=== PATIENT | female | born 1940 | race Caucasian/White ===

== ENCOUNTER 2024-07-29 16:18 | Emergency (ER) | payer MEDICARE, SELFPAY ==
--- NOTE | ~2024-07-29 | CT_ITS ---
CLINICAL HISTORY: Acetabular fracture CT pelvis without contrast Comparison: None Findings: Acute comminuted fractures with overriding in the buckling right inferior pubic ramus. Acute comminuted fractures at lateral margin of the superior pubic ramus extend to involve the anterior margin including lower portion of anterior column of the right acetabulum. 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 Degenerative changes also include left hip and imaged SI joints. Degenerative changes also present at imaged pubic symphysis without diastasis. Portions of the pelvis are obscured by superficial metal. Fluid and blood products noted anterior to the right side of the superior pubic rami fractures. Intraperitoneal fluid is nonspecific. Imaged appendix measures at the upper limits of normal. Moderate to severe stool burden is partially imaged in the [id number]. Partially imaged abdominal aorta measures up to 2.5 cm diameter with tortuosity. Vascular calcifications noted. Uterus deviates to the left. Index cyst of right ovary measures 2.2 cm. Left adnexa is unremarkable for CT. IMPRESSION: Acute right-sided pelvic fractures including comminuted pubic rami fractures This document has been electronically signed by: Nicolas Santamaria MD on 07/29/2024 19:16:37
--- NOTE | ~2024-07-29 | XR_ITS ---
CLINICAL HISTORY: fall Radiographs of the pelvis and right hip, 3 views Comparison: None Findings: Fracture of the right superior pubic ramus with 1.0 cm of displacement. Fracture of the right inferior pubic ramus. The osseous structures are otherwise intact. No dislocation. Mild degenerative change. Bone mineralization is decreased. Soft tissue swelling. Impression: Fractures of the right superior and inferior pubic rami. This document has been electronically signed by: Yenni Orozco MD on 07/29/2024 18:53:21
--- NOTE | ~2024-07-29 | XR_ITS ---
CLINICAL HISTORY: preop Chest Radiograph Comparison: None Findings: Prominent sized heart. Normal mediastinal contours. No pneumothorax. No opacity. No pleural effusion. Normal upper abdomen. No acute fracture. Impression: No acute findings. This document has been electronically signed by: Yenni Orozco MD on 07/29/2024 18:56:36
[2024-07-29 16:42] VITALS: BP 199/64; PULSE 79; RESP 16; TEMP 36.2; O2SAT 95; BMI 26.0
--- NOTE | 2024-07-29 17:18 | PC.NURSE ---
Pt comes to ED today with c/o pain to R hip and buttock s/p fall. Pt states she slipped today while out and was unable to get up and/or walk afterwards. States she crawled back to her car and two bystanders helped her up and into her car. A&Ox3, VSS Pt resting quietly at this time. Awaiting orders
--- NOTE | 2024-07-29 17:34 | ECG_ITS ---
Test Reason : FALL Blood Pressure : */* mmHG Vent. Rate : 72 BPM Atrial Rate : 72 BPM P-R Int : 174 ms QRS Dur : 100 ms QT Int : 418 ms P-R-T Axes : 96 -16 36 degrees QTcB Int : 457 ms Normal sinus rhythm Incomplete right bundle branch block Borderline ECG When compared with ECG of 17-Sep-2003 09:44, No significant change was found Referred By: Prakash Greene Electronically Signed By: Tal Spain
--- NOTE | 2024-07-29 17:34 | ED.FALL ---
HPI - Fall General Chief Complaint: Fall Stated Complaint: R hip pain after fall Time Seen by Provider: 07/29/24 17:23 Source: patient Mode of arrival: EMS Limitations: no limitations History of Present Illness ED Provider: HPI Narrative: Patient's history of hypertension and asthma was in stable health was coming out of the car slipped on the black ice and landed on her right hip no head injury no other injury complaining of pain in the right hip was unable to stand up because of pain no prior surgeries on the right hip Related Data Home Medications ?Medication ?Instructions ?Recorded ?Confirmed fluticasone 250 mcg-salmeterol 50 1 ea inhalation BID 07/29/24 07/29/24 mcg/dose blistr powdr for inhalation (Advair Diskus) fluticasone fur. 100 mcg-umeclid 1 ea inhalation DAILY 07/29/24 07/29/24 62.5 mcg-vilant 25 mcg inhalat.powder (Trelegy Ellipta) lisinopril 5 mg tablet 5 mg PO DAILY 07/29/24 07/29/24 Allergies Allergy/AdvReac Type Severity Reaction Status Date / Time No Known Allergies Allergy Verified 07/29/24 16:44 Review of Systems Review of Systems: Yes all other systems are reviewed and are negative PMFSH Past Medical History Medical History Asthma Hypertension Social History Social History Smoked in Last 30 Days: No Use of substances other than those prescribed or required for medical reasons: No Advance Directives: No Advance Directives Information Provided: Yes Physical Exam Vital Signs: Vital Signs: Last Vital Signs Temp 97.9 F 07/29/24 20:10 Pulse 72 07/29/24 20:10 Resp 16 07/29/24 20:10 BP 158/70 H 07/29/24 20:10 Pulse Ox 98 07/29/24 20:10 O2 Del Method Room Air 07/29/24 20:10 BMI result Body Mass Index 26.0 Appearance: Alert. Oriented X3. No acute distress. Eyes: No pallor or icterus ENT: Pharynx normal. Oral Mucosa moist Neck: Normal inspection. Neck supple. CVS: Normal heart rate and rhythm. Pulses normal. Respiratory: No respiratory distress. Equal air entry bilateral, no wheezing/rales/rhonchi Abdomen: Soft and nontender. Bowel sounds are present, no mass palpable, no CVA tenderness Skin: Skin warm and dry. Normal skin color. Normal skin turgor. Extremities: No lower extremity edema. No calf tenderness tenderness right groin area no deformity neurovascular intact Neuro: Oriented X 3. No motor deficit. No sensory deficit.No cerebellar signs , cranial nerves II-XII intact Medications Administered Discontinued Medications Generic Name Dose Route Start Last Admin Trade Name Freq PRN Reason Stop Dose Admin Morphine Sulfate 2 mg 07/29/24 17:33 07/29/24 17:57 Morphine Sulfate 2 Mg/Ml Cartridge IVPUSH 07/29/24 17:34 2 mg ONCE ONE Administration Protocol Ondansetron HCl 4 mg 07/29/24 17:33 07/29/24 17:57 Ondansetron Hcl 4 Mg/2 Ml Vial IVPUSH 07/29/24 17:34 4 mg ONCE ONE Administration Medical Decision Making Medical Decision Making [facility] Narrative: Patient with right pubic rami fracture status post fall unable to ambulate because of pain case discussed with ortho no surgical intervention needed medical treatment will get physical therapy and placement at rehab Differential Diagnosis Differential Diagnoses: The differential diagnosis associated with the presentation includes Admission/Observation Consideration of admission/observation: Escalation of care including admission/observation considered Lab Data [facility] Lab Attestation statement: I reviewed the patient's lab results. 07/29/24 17:56 07/29/24 17:56 Labs: Lab Results 07/29/24 Range/Units 17:56 WBC 11.2 H (4.8-10.8) X10*3/uL RBC 3.99 L (4.20-5.50) X10*6/uL Hgb 12.5 (12.0-16.0) g/dl Hct 37.1 (37.0-47.0) % MCV 93.0 (80.0-98.0) fL MCH 31.3 (27.0-33.0) pg MCHC 33.7 (31.0-35.0) g/dl RDW 12.2 (11.0-16.0) % Plt Count 224 (160-400) X10*3/uL MPV 10.5 (9.4-12.3) fL Immature Gran % (Auto) 0.5 H (0.0-0.4) % Neut % (Auto) 89.0 H (45-73) % Lymph % (Auto) 5.4 L (20-40) % [place] % (Auto) 4.5 (2-11) % Eos % (Auto) 0.4 (0-4) % Baso % (Auto) 0.2 (0-2) % Lymph # (Auto) 0.6 L (1.2-4.9) X10*3/uL [place] # (Auto) 0.5 (0.1-1.2) X10*3/uL Eos # (Auto) 0.1 (0.0-0.4) X10*3/uL Baso # (Auto) 0.0 (0.0-0.2) X10*3/uL Abs Immat Gran (auto) 0.06 H (0.00-0.03) X10*3/uL Absolute Neuts (auto) 10.0 H (2.0-8.3) x10*3/uL Absolute Nucleated RBC 0.000 (0.0-0.012) X10*3/uL Nucleated RBC % (auto) 0.0 (0.0-0.2) /100WBC PT 11.1 (10.9-12.4) SEC INR 1.0 (0.9-1.1) Sodium 141 (135-145) mmol/L Potassium 4.1 (3.3-5.1) mmol/L Chloride 107 (96-108) mmol/L Carbon Dioxide 24 (22-29) mmol/L Anion Gap 14 (12-20) BUN 20 H (9-16) mg/dL Creatinine 0.91 (0.5-1.4) mg/dL Estim Creat Clear Calc 40.5 Estimated GFR 59 Random Glucose 96 (60-115) mg/dL Calcium 9.2 (8.4-10.2) mg/dL Total Bilirubin 0.4 (0.0-1.0) mg/dL AST 25 (5-31) U/L ALT 18 (0-31) U/L Alkaline Phosphatase 82 (39-117) U/L Total Protein 7.3 (6.5-8.0) g/dL Albumin 4.3 (3.5-5.0) g/dL Independent Interpretation I performed an independent interpretation of an: CT Scan Radiology Impression Discussion of test interpretation with radiology: I have reviewed the radiologist's reading. Radiologist Impression: [address] [address] [address] Scan Report Signed Patient: Roxanna Hunter MR#: [id number] : 1940 Acct:[id number] Age/Sex: 84 / F ADM Date: 07/29/24 Loc: HO.ED Attending Dr: Ordering Physician: Prakash Greene MD Date of Service: 07/29/24 Procedure(s): CT pelvis wo IV con Accession Number(s): [id number] cc: Kevin Maldonado III, MD; Prakash Greene MD~ Report Number: [id number]: Total DLP = 352.00 mGy-cm CLINICAL HISTORY: Acetabular fracture CT pelvis without contrast Comparison: None Findings: Acute comminuted fractures with overriding in the buckling right inferior pubic ramus. Acute comminuted fractures at lateral margin of the superior pubic ramus extend to involve the anterior margin including lower portion of anterior column of the right acetabulum. 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 Degenerative changes also include left hip and imaged SI joints. Degenerative changes also present at imaged pubic symphysis without diastasis. Portions of the pelvis are obscured by superficial metal. Fluid and blood products noted anterior to the right side of the superior pubic rami fractures. Intraperitoneal fluid is nonspecific. Imaged appendix measures at the upper limits of normal. Moderate to severe stool burden is partially imaged in the [id number]. Partially imaged abdominal aorta measures up to 2.5 cm diameter with tortuosity. Vascular calcifications noted. Uterus deviates to the left. Index cyst of right ovary measures 2.2 cm. Left adnexa is unremarkable for CT. IMPRESSION: Acute right-sided pelvic fractures including comminuted pubic rami fractures This document has been electronically signed by: Nicolas Santamaria MD on 07/29/2024 19:16:37 Discharge Plan Discharge Clinical Impression: Closed fracture of right superior pubic ramus Patient Disposition: Still a Patient Prescriptions: No Action fluticasone propion-salmeterol [Advair Diskus] 250-50 mcg/dose blister with device 1 ea INHALATION BID lisinopril 5 mg tablet 5 mg PO DAILY Trelegy Ellipta 100-62.5-25 mcg blister with device 1 ea inhalation DAILY Print Language: Danish
[2024-07-29] MEDS: ondansetron HCL 4 MG/2 ML VIAL IVPUSH (17:57)
[2024-07-29] MEDS: Morphine Sulfate 2 MG/ML CARTRIDGE IVPUSH (17:57)
[2024-07-29 18:04] LABS: MANUAL DIFF FLAG NO
[2024-07-29 18:10] LABS: Basophils Percent Auto 0.2 % (0-2); Eosinophils Absolute Auto 0.1 X10*3/uL (0.0-0.4); Eosinophils Percent Auto 0.4 % (0-4); Hematocrit 37.1 % (37.0-47.0); Hemoglobin 12.5 g/dl (12.0-16.0); Imm Gran Abs Auto 0.06 X10*3/uL (0.00-0.03); Imm Gran Pct Auto 0.5 % (0.0-0.4); Lymphocytes Absolute Auto 0.6 X10*3/uL (1.2-4.9); Lymphocytes Percent Auto 5.4 % (20-40); Mean Corpuscular HGB Conc 33.7 g/dl (31.0-35.0); Mean Corpuscular Hemoglobin 31.3 pg (27.0-33.0); Mean Platelet Volume 10.5 fL (9.4-12.3); Monocytes Absolute Auto 0.5 X10*3/uL (0.1-1.2); Monocytes Percent Auto 4.5 % (2-11); Platelet Count 224 X10*3/uL (160-400); Red Blood Count 3.99 X10*6/uL (4.20-5.50); Red Cell Distribution Width 12.2 % (11.0-16.0); White Blood Count 11.2 X10*3/uL (4.8-10.8)
[2024-07-29 18:22] LABS: Prothrombin Time 11.1 SEC (10.9-12.4)
[2024-07-29 18:31] LABS: Alanine Aminotransferase 18 U/L (0-31); Albumin Level 4.3 g/dL (3.5-5.0); Alkaline Phosphatase 82 U/L (39-117); Anion Gap 14 (12-20); Aspartate Amino Transferase 25 U/L (5-31); Bilirubin Total 0.4 mg/dL (0.0-1.0); Blood Urea Nitrogen 20 mg/dL (9-16); Calcium 9.2 mg/dL (8.4-10.2); Carbon Dioxide 24 mmol/L (22-29); Chloride 107 mmol/L (96-108); Creatinine Clr Calc Pharmacy 40.5; Estimated Glomerular Filt Rate 59; Glucose Random 96 mg/dL (60-115); Potassium 4.1 mmol/L (3.3-5.1); Sodium 141 mmol/L (135-145); Total Protein 7.3 g/dL (6.5-8.0)
[2024-07-29 20:10] VITALS: BP 158/70; PULSE 72; RESP 16; TEMP 36.6; O2SAT 98
[2024-07-30] VITALS (7 sets, daily range): BP systolic 130–149; BP diastolic 56–64; PULSE 64–79; RESP 16–20; TEMP 36.6–36.8; O2SAT 97–98
[2024-07-30] MEDS: Morphine Sulfate 2 MG/ML CARTRIDGE IVPUSH ×2 (01:51→10:02)
--- NOTE | 2024-07-30 02:02 | PC.NURSE ---
Patient medicated with Morphine 2 mg IV for 7/10 pain in right hip.
[2024-07-30] MEDS: lisinopriL 5 MG TABLET PO (08:33)
--- NOTE | 2024-07-30 09:41 | MHC.EDTECH ---
patient requested to use the bed stearns. Patient also requested a new purewick. put patient on bed stearns for a BM. No Results. I clean patient up and apply new purewick nurse aware
--- NOTE | 2024-07-30 09:45 | PHA.MEDREC ---
Addendum entered by Judy Sánchez RPh 07/30/24 10:04: med rec reviewed by [facility] Original Note: Pharmacy Consult ? Medication Reconciliation Pharmacy has reviewed the medication reconciliation done by nursing. Spoke to patient to confirm med list. Patient states she is no longer on Advair diskus. Took off med rec.
[2024-07-30 10:33] LABS: COVID-19 Test Negative (Negative); IDNOW Serial# 55D5AD1C
--- NOTE | 2024-07-30 11:05 | MHC.CM.ED ---
Addendum entered by Valery Wisdom 07/30/24 13:14: Copy of HCP obtained from Annie. Sent to [facility]. Patient's daughter, Aggie, updated via telephone at [phone] per voicemail request. Original Note: Received case management consult overnight. Patient came to the ER due to a fall. Found to have a pelvic fx. Physical therapy eval completed. Short term rehab is recommended. Met with patient in regards to discharge planning. Patient lives with her son, ambulates independently and had no services prior to coming to the hospital. PCP verified. Patient requesting referral to [facility]. [facility] is willing to offer a bed and is requesting a copy of patient's HCP. Patient states her daughter, Annie, has a copy of her HCP. Spoke with Annie via telephone at [phone]. Annie is currently in [place]. She will ask her siblings to provide a copy of HCP to hospital. [facility] aware. Continue to monitor for d/c needs.
--- NOTE | 2024-07-30 12:42 | PC.NURSE ---
verbal report given to Uzair LYN for transfer to [facility].
--- NOTE | 2024-07-30 13:44 | MHC.CM.ED ---
Insurance auth has been obtained. [facility] is unable to accept patient until tomorrow 07/31 at 9am. Leandro DODGE booked. [facility] with chart. Patient, daughter Adilene Marcial RN and Billie MATA aware. Continue to monitor for d/c needs.
[2024-07-31] MEDS: Morphine Sulfate 2 MG/ML CARTRIDGE IVPUSH (02:35)
[2024-07-31 06:20] VITALS: BP 130/62; PULSE 65; RESP 18; TEMP 36.6; O2SAT 96
[2024-07-31] MEDS: lisinopriL 5 MG TABLET PO (08:33)
--- NOTE | 2024-07-31 08:39 | MHC.EDTECH ---
Hourly rounds completed, Patient ate her breakfast and she is using the bedpan now for bowel movement
--- NOTE | 2024-07-31 08:54 | PC.NURSE ---
One-time dose of Morphine IR 15mg PO ordered for pt. to be given at the time of d/c for comfortable transport.
[2024-07-31] MEDS: Morphine Sulfate Immed Release 15 MG TABLET PO (09:04)
[2024-07-31 09:36] VITALS: BP 178/74; PULSE 81; RESP 18; TEMP 36.5; O2SAT 96
== END 2024-07-31 09:37 ==
PROVIDERS: Emergency Provider Internal Medicine; PCP Internal Medicine
DX: S32.501A Unspecified fracture of right pubis, initial encounter for closed fracture (principal); R10.2 Pelvic and perineal pain; R26.81 Unsteadiness on feet; M25.551 Pain in right hip; I45.10 Unspecified right bundle-branch block; W00.0XXA Fall on same level due to ice and snow, initial encounter; Y93.9 Activity, unspecified; Y92.89 Other specified places as the place of occurrence of the external cause; Y99.8 Other external cause status; Z79.899 Other long term (current) drug therapy
CPT/HCPCS: 36415; 71045; 72192; 73502; 80053; 85025; 85610; 87635; 93005; 96374; 96375; 96376; 97162; 99285; J2270; J2405

== ENCOUNTER → 2024-07-29 17:33 | Outpatient (BNV) | payer MEDICARE, SELFPAY | PROVIDERS: Emergency Provider Internal Medicine; PCP Internal Medicine; Visit Provider Radiology Diagnostic Radiology | DX: S32.511A Fracture of superior rim of right pubis, initial encounter for closed fracture (principal); Z01.810 Encounter for preprocedural cardiovascular examination | CPT/HCPCS: 71045; 72192; 73502 ==

== ENCOUNTER → 2024-07-29 17:34 | Outpatient (BNV) | payer MEDICARE, SELFPAY | PROVIDERS: Emergency Provider Internal Medicine; PCP Internal Medicine; Visit Provider Internal Medicine Cardiovascular Disease | DX: I45.10 Unspecified right bundle-branch block (principal) | CPT/HCPCS: 93010 ==

== ENCOUNTER 2024-08-29 09:30 | Outpatient (REF) | payer MEDICARE, SELFPAY ==
--- NOTE | ~2024-08-29 | XR_ITS ---
EXAMINATION: XR HIP 2 OR MORE VIEWS RIGHT HISTORY: M25.559 - Pain in unspecified hip COMPARISON: Comparison is made with the prior examination dated 07/29/2024. FINDINGS: A single AP view of the pelvis and two views of the right hip are submitted. The bones are osteopenic. Again seen are fractures of the superior and inferior pubic rami. There is callus formation noted at the fracture sites consistent with healing. There is mild joint space narrowing. The soft tissues are unremarkable. XR/XR hip RT min 2V IMPRESSION: Healing fractures of the right superior and inferior pubic rami. Electronically signed by: Juan Carlos Cat MD 09/01/2024 01:09 PM EDT
--- OUTSIDE RECORDS SUMMARY | 2024-09-01 10:18 | XMS_ITS | Encounter Summary ---
Author Organization [facility] Address [address] [place] [phone] Care Team Providers Care Screen Tender Name Role Phone Kevin Maldonado MD Primary Care Provider [phone] Reason for Visit * Reason Onset Date Comments triage 08/27/2024 Bhupinder was ana martell on this call Encounter Details Date Type Department Care Team ([facility] st Contact Info) Description 08/27/2024 Telephone Adult Medicine [facility] [address] [place] [phone] Kevin Maldonado MD [address] [place] [phone] triage (Bhupinder was working on this call [...] VNA CALL Which VNA office is calling? [facility] Full name of caller: danielle [...] 1:30 PM EDT Office Visit Adult Medicine [facility] [address] [place] [phone] Kevin Maldonado MD [address] [place] [phone] 02/10/2025 8:00 AM EDT Office Visit Adult Medicine [facility] [address] [place] [phone] Kevin Maldonado MD [address] [place] [address] documented as of this encounter Visit Diagnoses Not on filedocumented in this encounter Care Teams Screen Tender Relationship Specialty Start Date End Date Kevin Maldonado MD [address] [place] [phone] PCP - General Internal Medicine 11/17/20 documented as of this encounter
--- OUTSIDE RECORDS SUMMARY | 2024-09-01 10:18 | XMS_ITS | Encounter Summary ---
Author Organization [facility] Address [address] [place] [phone] Care Team Providers Care Computer Assistant Name Role Phone Kevin Maldonado MD Primary Care Provider [phone] Reason for Visit * Reason Onset Date Comments vna 08/27/2024 Encounter Details Date Type Department Care Team (Late st Contact Info) Description 08/27/2024 Telephone Adult Medicine [facility] [address] [place] [phone] Kevin Maldonado MD [address] [place] [phone] vna Social History Tobacco Use Types Packs/Day [...] Reason for call: Requesting verbal order for longterm , PT and OT , please contact nurse Does caller need an urgent call back? no Was CONTACT Telephone # obtained above?: yes Fax #: documented in this encounter Plan of Treatment Upcoming Encounters Date Type Department Care Team (Late st Contact Info) Description 09/22/2024 1:30 PM EDT Office Visit Adult [address] [phone] Kevin Maldonado MD [address] [place] [address] 02/10/2025 8:00 AM EDT Office Visit [address] [phone] Kevin Maldonado MD [address] [place] [address] documented as of this encounter Visit Diagnoses Not on filedocumented in this encounter Care Teams Computer Assistant Relationship Specialty Start Date End Date Kevin Maldonado MD [address] [place] [address] PCP - General Internal Medicine 11/17/20 documented as of this encounter
--- OUTSIDE RECORDS SUMMARY | 2024-09-01 10:18 | XMS_ITS | Encounter Summary ---
Author Organization [facility] Address [address] [place] [phone] Care Team Providers Care Bindery Helper Name Role Phone Kevin Maldonado MD Primary Care Provider [phone] Reason for Visit * Reason Onset Date Comments VNA 08/29/2024 Encounter Details Date Type Department Care Team (Late Contact Info) Description 08/29/2024 Telephone Adult Medicine [address] [phone] Hnanah Beck, RIKI VNA Social History Tobacco Use Types Packs/Day Years [...] Progress Notes * Olvin Jung LPN - 09/01/2024 9:53 AM EDT VO given to Alaina * Kevin Maldonado MD - 08/29/2024 6:30 PM EST Please give the vo documented in this encounter Plan of Treatment Upcoming Encounters Date Type Department Care Team (Late Contact Info) Description 09/22/2024 1:30 PM EDT Office Visit Adult Medicine [address] [phone] Kevin Maldonado MD [address] [place] [address] 02/10/2025 8:00 AM EDT Office Visit Adult Medicine [address] [phone] Kevin Maldonado MD [address] [place] [address] documented as of this encounter Visit Diagnoses Not on filedocumented in this encounter Care Teams Bindery Helper Relationship Specialty Start Date End Date Kevin Maldonado MD [address] [place] [address] PCP - General Internal Medicine 11/17/20 documented as of this encounter
--- OUTSIDE RECORDS SUMMARY | 2024-09-01 10:18 | XMS_ITS | Encounter Summary ---
Author Organization [facility] Address [address] [place] [phone] Care Team Providers Care Surveyor Name Role Phone Kevin Maldonado MD Primary Care Provider [phone] Reason for Referral * Consultation (Routine) - Authorized Specialty Diagnoses / Procedures Referred By Gorge pena Referred To Contact Orthopaedics Diagnoses Closed fracture of superior ramus of right pubis, initial encounter ([facility]) Kevin Maldonado MD [address] [place] [address] Phone: tel: fax: Juan Maza MD [address] [place] [phone] Phone: tel: Referral ID Status Reason Start Date Expiration Date Visits Requested Visits Authorized [id number] Authorized Specialty Services Required 08/07/2024 08/07/2025 6 6 Reason for Visit * Reason Onset Date Comments Referral 08/10/2024 [facility] Encounter Details Date Type Department Care Team ([facility] st Contact Info) Description 08/10/2024 Telephone Adult Medicine [address] [phone] Ny Bravo [place] Referral ([facility]) Social History Tobacco Use Types Packs/Day [...] insurance must be obtained and registered in [facility] or their referral can not be processed. Is this a retro request? yes. If yes for what date of service do you need the retro referral? 08/07/24 Who is calling to request this referral? Jose Guadalupe Morgan If the caller is not the patient, what is their name? not applicable Ask the patient WHO referred them to this specialty: Patient saw at [facility] for the problem and was told if [...] this visit: Initial Visit Address of Specialist: [address] [place] [address], [address] Phone # of Specialist: [phone] Fax #: (if applicable): [phone] Does patient have an appointment scheduled?: yes Date of appointment- (including a retro-request): 08/07/24 Is this appointment related to: Not MVA, worker compensation, or surgery related documented in this encounter Plan of Treatment Upcoming Encounters Date Type Department Care Team (Late st Contact Info) Description 09/22/2024 1:30 PM EDT Office Visit Adult Medicine [address] [phone] Kevin Maldonado MD [address] [place] [address] 02/10/2025 8:00 AM EDT Office Visit Adult Medicine [address] [phone] Kevin Maldonado MD [address] [place] [address] Scheduled Referrals Name Type Priority Associated Diagnoses Order Schedule Ambulatory referral to Orthopedic Outpatient Referral Routine Closed fracture of superior ramus of right pubis, initial encounter ([facility]) 1 Occurrences starting 08/11/2024 until 08/11/2025 documented as of this encounter Visit Diagnoses Diagnosis Closed fracture of superior ramus of right pubis, initial encounter ([facility])- Primary documented in this encounter Care Teams Surveyor Relationship Specialty Start Date End Date Kevin Maldonado MD [address] [place] [address] PCP - General Internal Medicine 11/17/20 documented as of this encounter
--- OUTSIDE RECORDS SUMMARY | 2024-09-01 10:18 | XMS_ITS | Encounter Summary ---
Author Organization [facility] Address [address] [place] [address] Care Team Providers Care Sales Management Intern Name Role Phone Kevin Maldonado MD Primary Care Provider [phone] Reason for Visit * Reason Onset Date Comments [facility] 08/29/2024 Encounter Details Date Type Department Care Team (Late st Contact Info) Description 08/29/2024 Nurse Triage Adult Medicine [facility] [address] [place] [phone] Kevin Maldonado MD [address] [place] [id number] [facility] Social History Tobacco Use Types Packs/Day [...] on file documented as of this encounter Ordered Prescriptions Prescription Sig Dispense Quantity Refills Last Filled Start Date End Date benzonatate (TESSALON) 100 mg capsule Take 1 capsule (100 mg total) by mouth 3 (three) times a day if needed for cough. Do not crush or chew. 42 capsule 08/29/2024 documented in this encounter Progress Notes * Hannah Beck RN - 09/01/2024 8:35 AM EDT Noted. * Kevin Maldonado MD - 08/29/2024 6:05 PM EST Called pt to inform her gisela azar has been sent to her pharmacy. Pt to call on Sunday if not feeling better regarding the cough * Hannah Beck RN - 08/29/2024 2:54 PM EST Called and spoke to Roxanne. She states pt's BP was 184/81 today. Pt was asymptomatic per Roxanne. She states pt has been taking OTC cough medication. She stopped taking this medication yesterday. She is complaining of a productive cough with copious green sputum. She is requesting a medication to help with her cough. She was advised if her PCP could not prescribe her anything for her cough she could go to an [facility] for further evaluation and treatment. Answer Assessment - Initial Assessment Questions 1. BLOOD PRESSURE: What is your blood pressure? Did you take at least two measurements 5 minutesapart? 184/81 2. ONSET: When did you take your blood pressure? Taken by [facility] OT today 3. HOW: How did you take your blood pressure? (e.g., automatic home BP monitor, visiting nurse) Visiting nurse 4. HISTORY: Do you have a history of high blood pressure? HTN 5. MEDICINES: Are you taking any medicines for blood pressure? Have you missed any doses recently? Hctz and Lisinopril 6. OTHER SYMPTOMS: Do you have any symptoms? (e.g., blurred vision, chest pain, difficulty breathing, headache, weakness) No symptoms 7. : Is there any chance you are ? When was your last menstrual period? No. Pt is 84 Protocols used: Blood Pressure - High-A-AH * Violetta [place] - 08/29/2024 2:33 PM EST [facility] CALL Which [facility] office is calling? [facility] Full name of caller: Roxanne The caller is An Occupational Therapist Is the caller at the patients home?: no Reason for call: Roxanne with [facility] is calling to get verbal orders for OT. States PT 1x a week for 3 weeks then 1x a week for 2 weeks. Would also like to report patient blood pressure today was 184/81. She has a productive cough and has been taking otc cough medication and stopped yesterday Does caller need an urgent call back? no Was CONTACT Telephone # obtained above?: yes Fax #: n/a documented in this encounter Plan of Treatment Upcoming Encounters Date Type Department Care Team (Late st Contact Info) Description 09/22/2024 1:30 PM EDT Office Visit Adult Medicine [address] [phone] Kevin Maldonado MD [address] [place] [address] 02/10/2025 8:00 AM EDT Office Visit [address] [phone] Kevin Maldonado MD [address] [place] [address] documented as of this encounter Visit Diagnoses Not on filedocumented in this encounter Care Teams Sales Management Intern Relationship Specialty Start Date End Date Kevin Maldonado MD [address] [place] [address] PCP - General Internal Medicine 11/17/20 documented as of this encounter
--- OUTSIDE RECORDS SUMMARY | 2024-09-01 10:18 | XMS_ITS | Clinical Summary ---
Author Organization [facility] Address [address] [place] [address] Phone Care Team Providers Care Temperature Inspector Name Role Phone Kevin Maldonado MD Primary Care Provider [phone] Allergies Active Allergy Reactions Criticality Noted Date [...] NOT SWALLOW. 60 each 1 5 Active benzonatate (TESSALON) 100 mg capsule Take 1 capsule (100 mg total) by mouth 3 (three) times a day if needed for cough. Do not crush or chew. 42 capsule 5 025 Active Active Problems Problem Noted Date Diagnosed [...] Encounters Date Type Department Care Team Description 08/29/2024 Telephone Adult Medicine [address] [phone] Hannah Beck, RIKI [facility] 08/29/2024 Nurse Triage Adult Medicine [address] [phone] Kevin Maldonado MD [facility] 08/27/2024 Telephone Adult Medicine [address] [phone] Kevin Maldonado MD triage (Bhupinder was working on this call ) 08/27/2024 Telephone Adult Medicine [address] [phone] Kevin Maldonado MD vna 08/26/2024 Telephone Adult Medicine [address], [place] [phone] Margaret Ugarte [place] dry cough 08/21/2024 Telephone Adult Medicine [address] [phone] Olvin Jung LPN vna 08/10/2024 Telephone Adult Medicine [address] [phone] Ny Bravo [place] Referral ([facility]) 08/01/2024 Lab Requisition [facility] - Main Lab [address] [place] [address] Valerie Singletary PA Type 2 diabetes mellitus without complications ([facility]/HCC); Chronic obstructive pulmonary disease, unspecified (CMS/HCC); Elevated [...] 1:30 PM EDT Office Visit Adult Medicine [address] [phone] Kevin Maldonado MD [address] [place] [address] 02/10/2025 8:00 AM EDT Office Visit Adult Medicine [address] [phone] Kevin Maldonado MD [address] [place] [phone] Health Maintenance Due Date Last Done Comments [...] Complete blood count (08/01/2024 5:13 AM EST) [facility] WBC 7.0 4.8 - 10.8 K/mcL LAB HEMETOLOGY METHOD 08/01/2024 9:33 AM [facility] RBC 3.70(L) 3.80 - 4.80 M/mcL LAB HEMETOLOGY METHOD 08/01/2024 9:33 AM [facility] Hemoglobin 11.4(L) 11.5 - 16.0 g/dL LAB HEMETOLOGY METHOD 08/01/2024 9:33 AM [facility] Hematocrit 35.7 35.0 - 47.0 % LAB HEMETOLOGY METHOD 08/01/2024 9:33 AM [facility] MCV 97.0 79.0 - 98.0 FL LAB HEMETOLOGY METHOD 08/01/2024 9:33 AM EST [facility] MCH 31.0 27.0 - 32.0 pcg LAB HEMETOLOGY METHOD 08/01/2024 9:33 AM [facility] MCHC 31.9(L) 32.0 - 37.0 g/dL LAB HEMETOLOGY METHOD 08/01/2024 9:33 AM EST [facility] RDW 12.4 11.0 - 15.0 % LAB HEMETOLOGY METHOD 08/01/2024 9:33 AM [facility] Platelets 200 130 - 400 K/mcL LAB HEMETOLOGY METHOD 08/01/2024 9:33 AM [facility] MPV 10.9 7.0 - 11.0 FL LAB HEMETOLOGY METHOD 08/01/2024 9:33 AM EST [facility] NRBC 0.0 <1.0 % LAB HEMETOLOGY METHOD 08/01/2024 9:33 AM [facility] NRBC Absolute 0.00 <0.10 K/mcL LAB HEMETOLOGY METHOD 08/01/2024 9:33 AM [facility] Blood Venous blood specimen / Unknown Venipuncture / Unknown 08/01/2024 5:13 AM EST 08/01/2024 8:44 AM EST us Valerie CORDON LAB BLOOD ORDERABLES Final Re sult [facility] [address] [place] [address], * Hemoglobin A1c (08/01/2024 5:13 AM EST) Hemoglobin A1C 4.9 <6.5 % LAB CHEMISTRY METHOD 08/01/2024 12:36 PM EST [facility] Mean Bld Glu Estim. 94 mg/dL LAB CHEMISTRY METHOD 08/01/2024 12:36 PM [facility] Blood Venous blood specimen / Unknown Venipuncture / Unknown 08/01/2024 5:13 AM EST 08/01/2024 8:44 AM EST us Valerie CORDON LAB BLOOD ORDERABLES Final Re sult [facility] [address] [place] [address], [place] [phone] * (ABNORMAL) Comprehensive metabolic panel (08/01/2024 5:13 AM EST) Sodium 137 133 - 145 mmol/L LAB CHEMISTRY METHOD 08/01/2024 9:59 AM [facility] Potassium 4.5 3.5 - 5.5 mmol/L LAB CHEMISTRY METHOD 08/01/2024 9:59 AM [facility] Chloride 105 96 - 110 mmol/L LAB CHEMISTRY METHOD 08/01/2024 9:59 AM [facility] CO2 25 21 - 32 mmol/L LAB CHEMISTRY METHOD 08/01/2024 9:59 AM [facility] Anion Gap 7 3 - 11 LAB CHEMISTRY METHOD 08/01/2024 9:59 AM [facility] Glucose 87 70 - 100 mg/dL LAB CHEMISTRY METHOD 08/01/2024 9:59 AM [facility] BUN 36(H) 5 - 25 mg/dL LAB CHEMISTRY METHOD 08/01/2024 9:59 AM [facility] Creatinine 1.46(H) 0.50 - 1.10 mg/dL LAB CHEMISTRY METHOD 08/01/2024 9:59 AM [facility] eGFR 35(L) >=60 mL/min/1. 73m2 LAB CHEMISTRY METHOD 08/01/2024 9:59 AM [facility] Comment:Calculation based on the??Chronic Kidney Disease Epidemiology Collaboration (CKD-EPI) equation refit??without adjustment for race. BUN/Creatinine Ratio 24.7 LAB CHEMISTRY METHOD 08/01/2024 9:59 AM [facility] Calcium 8.9 8.5 - 10.5 mg/dL LAB CHEMISTRY METHOD 08/01/2024 9:59 AM [facility] AST (SGOT) 13 10 - 42 unit/L LAB CHEMISTRY METHOD 08/01/2024 9:59 AM [facility] ALT (SGPT) 17 10 - 60 unit/L LAB CHEMISTRY METHOD 08/01/2024 9:59 AM [facility] Alkaline Phosphatase 61 42 - 121 unit/L LAB CHEMISTRY METHOD 08/01/2024 9:59 AM [facility] Total Protein 5.8(L) 6.0 - 8.0 g/dL LAB CHEMISTRY METHOD 08/01/2024 9:59 AM [facility] Albumin 3.3 3.2 - 5.0 g/dL LAB CHEMISTRY METHOD 08/01/2024 9:59 AM [facility] Total Bilirubin 0.7 0.0 - 1.4 mg/dL LAB CHEMISTRY METHOD 08/01/2024 9:59 AM [facility] Blood Venous blood specimen / Unknown Venipuncture / Unknown 08/01/2024 5:13 AM EST 08/01/2024 8:44 AM EST us Valerie CORDON LAB BLOOD ORDERABLES Final Re sult [facility] [address] [place] [address], * (ABNORMAL) Lipid panel (02/07/2024) LDL/HDL Ratio 4 0 - 4 Triglycerides 86 0 - 150 mg/dL Cholesterol 206(A) 0 - 200 mg/dL HDL 52 >=40 mg/dL LDL Cholesterol 137(A) 0 - 100 mg/dL Blood Venous blood specimen / Unknown us Historical Provider LAB BLOOD ORDERABLES [place] [place] Result * DXA BONE DENSITY STUDY 1+ [...] to have osteoporosis by WHO criteria. [facility] Department of Internal Medicine recommends using National [...] alternative screening schedule based on kylee Bowers., [facility] July 13, 2011 for patients with osteopenia [...] to have osteoporosis by WHO criteria. [facility] Department of Internal Medicine recommendsusing National Osteoporosis [...] FRAX. Optional alternative screening schedule based on yaya Bowers al., NEJMJanuary 2011 for patients with osteopenia (based on hip BMD T-score) is as follows: * advanced osteopenia (T scores -2.00 to -2.49), BMD testing every year * moderate osteopenia (T scores -1.50 to -1.99), BMD testing every 5years mild osteopenia or normal BMD (T scores -1.50 and higher), BMD testingevery 15 years Ariana CORDON [employer] DXA PROCEDURES Final Result from Last 3 Months or Most Recently Relevant to Health Maintenance Insurance [employer] Care Teams Temperature Inspector Relationship Specialty Start Date End Date Kevin Maldonado MD [address] [place] [id number] PCP - General Internal Medicine 11/17/20
--- OUTSIDE RECORDS SUMMARY | 2024-09-01 10:18 | XMS_ITS | Encounter Summary ---
Author Organization [facility] Address [address] [place] [address] Care Team Providers Care Vector Control Assistant Name Role Phone Kevin Maldonado MD Primary Care Provider [phone] Reason for Visit * Reason Onset Date Comments dry cough 08/26/2024 Encounter Details Date Type Department Care Team (Late st Contact Info) Description 08/26/2024 Telephone Adult Medicine [address] [phone] Margaret Ugarte [place] dry cough Social History [...] number to call her back at is [phone] * Cody Lewis RN - 08/26/2024 3:16 [...] traveled recently to another state outside of [place], [place], [place], [place], [place], [place], [place]? no o If yes, did you quarantine [...] yes, gather 3rd libertarian insurance information Third Constitution Party Information: not applicable PCP: Kevin Maldonado MD Payor: [employer] / Plan: [facility] / Product Type: *No Product type* / documented in this encounter Plan of Treatment Upcoming Encounters Date Type Department Care Team (Late st Contact Info) Description 09/22/2024 1:30 PM EDT Office Visit Adult Medicine [address] [phone] Kevin Maldonado MD [address] [place] [address] 02/10/2025 8:00 AM EDT Office Visit [address] [phone] Kevin Maldonado MD [address] [place] [address] documented as of this encounter Visit Diagnoses Not on filedocumented in this encounter Care Teams Vector Control Assistant Relationship Specialty Start Date End Date Kevin Maldonado MD [address] [place] [address] PCP - General Internal Medicine 11/17/20 documented as of this encounter
--- OUTSIDE RECORDS SUMMARY | 2024-09-01 10:18 | XMS_ITS | Encounter Summary ---
Author Organization [facility] Address [address] [place] [address] Care Team Providers Care Ditcher Operator Name Role Phone Kevin Maldonado MD Primary Care Provider [phone] Encounter Details Date Type Department Care Team (Late st Contact Info) Description 08/01/2024 Lab Requisition [facility] - Main Lab [address] [facility] [place] [address] Valerie Singletary PA [address] [phone] Type 2 diabetes mellitus without [...] 1:30 PM EDT Office Visit Adult Medicine [address] [phone] Kevin Maldonado MD [address] [place] [address] 02/10/2025 8:00 AM EDT Office Visit Adult Medicine [address] [phone] Kevin Maldonado MD [address] [place] [address] documented as of this encounter Procedures Procedure [...] LAB CHEMISTRY METHOD 08/01/2024 12:36 PM EST [facility] Mean Bld Glu Estim. 94 mg/dL LAB CHEMISTRY METHOD 08/01/2024 12:36 PM EST [facility] Blood Venous blood specimen / Unknown Venipuncture / Unknown 08/01/2024 5:13 AM EST 08/01/2024 8:44 AM EST us Valerie CORDON LAB BLOOD ORDERABLES Final Re sult [facility] [address] [place] [address], * (ABNORMAL) Comprehensive metabolic panel (08/01/2024 5:13 AM EST) Sodium 137 133 - 145 mmol/L LAB CHEMISTRY METHOD 08/01/2024 9:59 AM [facility] Potassium 4.5 3.5 - 5.5 mmol/L LAB CHEMISTRY METHOD 08/01/2024 9:59 AM [facility] Chloride 105 96 - 110 mmol/L LAB CHEMISTRY METHOD 08/01/2024 9:59 AM [facility] CO2 25 21 - 32 mmol/L LAB CHEMISTRY METHOD 08/01/2024 9:59 AM [facility] Anion Gap 7 3 - 11 LAB CHEMISTRY METHOD 08/01/2024 9:59 AM [facility] Glucose 87 70 - 100 mg/dL LAB CHEMISTRY METHOD 08/01/2024 9:59 AM [facility] BUN 36(H) 5 - 25 mg/dL LAB CHEMISTRY METHOD 08/01/2024 9:59 AM [facility] Creatinine 1.46(H) 0.50 - 1.10 mg/dL LAB CHEMISTRY METHOD 08/01/2024 9:59 AM [facility] eGFR 35(L) >=60 mL/min/1. 73m2 LAB CHEMISTRY METHOD 08/01/2024 9:59 AM [facility] Comment:Calculation based on the??Chronic Kidney Disease Epidemiology Collaboration (CKD-EPI) equation refit??without adjustment for race. BUN/Creatinine Ratio 24.7 LAB CHEMISTRY METHOD 08/01/2024 9:59 AM [facility] Calcium 8.9 8.5 - 10.5 mg/dL LAB CHEMISTRY METHOD 08/01/2024 9:59 AM [facility] AST (SGOT) 13 10 - 42 unit/L LAB CHEMISTRY METHOD 08/01/2024 9:59 AM [facility] ALT (SGPT) 17 10 - 60 unit/L LAB CHEMISTRY METHOD 08/01/2024 9:59 AM [facility] Alkaline Phosphatase 61 42 - 121 unit/L LAB CHEMISTRY METHOD 08/01/2024 9:59 AM [facility] Total Protein 5.8(L) 6.0 - 8.0 g/dL LAB CHEMISTRY METHOD 08/01/2024 9:59 AM [facility] Albumin 3.3 3.2 - 5.0 g/dL LAB CHEMISTRY METHOD 08/01/2024 9:59 AM [facility] Total Bilirubin 0.7 0.0 - 1.4 mg/dL LAB CHEMISTRY METHOD 08/01/2024 9:59 AM [facility] Blood Venous blood specimen / Unknown Venipuncture / Unknown 08/01/2024 5:13 AM EST 08/01/2024 8:44 AM EST us Valerie CORDON LAB BLOOD ORDERABLES Final Re sult [facility] [address] [place] [address], * (ABNORMAL) Complete blood count (08/01/2024 5:13 AM EST) WBC 7.0 4.8 - 10.8 K/mcL LAB HEMETOLOGY METHOD 08/01/2024 9:33 AM [facility] RBC 3.70(L) 3.80 - 4.80 M/mcL LAB HEMETOLOGY METHOD 08/01/2024 9:33 AM [facility] Hemoglobin 11.4(L) 11.5 - 16.0 g/dL LAB HEMETOLOGY METHOD 08/01/2024 9:33 AM [facility] Hematocrit 35.7 35.0 - 47.0 % LAB HEMETOLOGY METHOD 08/01/2024 9:33 AM [facility] MCV 97.0 79.0 - 98.0 FL LAB HEMETOLOGY METHOD 08/01/2024 9:33 AM [facility] MCH 31.0 27.0 - 32.0 pcg LAB HEMETOLOGY METHOD 08/01/2024 9:33 AM EST [facility] MCHC 31.9(L) 32.0 - 37.0 g/dL LAB HEMETOLOGY METHOD 08/01/2024 9:33 AM [facility] RDW 12.4 11.0 - 15.0 % LAB HEMETOLOGY METHOD 08/01/2024 9:33 AM [facility] Platelets 200 130 - 400 K/mcL LAB HEMETOLOGY METHOD 08/01/2024 9:33 AM [facility] MPV 10.9 7.0 - 11.0 FL LAB HEMETOLOGY METHOD 08/01/2024 9:33 AM [facility] NRBC 0.0 <1.0 % LAB HEMETOLOGY METHOD 08/01/2024 9:33 AM [facility] NRBC Absolute 0.00 <0.10 K/mcL LAB HEMETOLOGY METHOD 08/01/2024 9:33 AM [facility] Blood Venous blood specimen / Unknown Venipuncture / Unknown 08/01/2024 5:13 AM EST 08/01/2024 8:44 AM EST us Valerie CORDON LAB BLOOD ORDERABLES Final Re sult [facility] [address] [place] [address], documented in this encounter Visit Diagnoses Diagnosis Type 2 diabetes mellitus without complications (CMS/HCC) Chronic obstructive pulmonary disease, unspecified (CMS/HCC) Elevated white blood cell count, unspecified documented in this encounter Care Teams Ditcher Operator Relationship Specialty Start Date End Date Kevin Maldonado MD [address] [place] [address] PCP - General Internal Medicine 11/17/20 documented as of this encounter
--- OUTSIDE RECORDS SUMMARY | 2024-09-01 10:18 | XMS_ITS | Encounter Summary ---
Author Organization [facility] Address [address] [place] [phone] Care Team Providers Care Travel Manager Name Role Phone Kevin Maldonado MD Primary Care Provider [phone] Reason for Visit * Reason Onset Date Comments vna 08/21/2024 Encounter Details Date Type Department Care Team (Late st Contact Info) Description 08/21/2024 Telephone Adult Medicine [address] [place] [address] [phone] Olvin Jung LPN vna Social History Tobacco [...] you Please send response to nurse triage [facility] rehab visit booked for 09/22/24 Last office visit 04/22/25 documented in this encounter Plan of Treatment Upcoming Encounters Date Type Department Care Team (Late st Contact Info) Description 09/22/2024 1:30 PM EDT Office Visit [address] [phone] Kevin Maldonado MD [address] [place] [address] 02/10/2025 8:00 AM EDT Office Visit [address] [phone] Kevin Maldonado MD [address] [place] [address] documented as of this encounter Visit Diagnoses Not on filedocumented in this encounter Care Teams Travel Manager Relationship Specialty Start Date End Date Kevin Maldonado MD [address] [place] [address] PCP - General Internal Medicine 11/17/20 documented as of this encounter
== END 2024-08-29 09:31 | disposition home or self-care (01) ==
LOC: HO.HOSX 09:30
PROVIDERS: Visit Provider Physician Assistant
DX: M25.551 Pain in right hip (principal); S32.511A Fracture of superior rim of right pubis, initial encounter for closed fracture; S32.591A Other specified fracture of right pubis, initial encounter for closed fracture
CPT/HCPCS: 73502; 99202

== ENCOUNTER 2024-08-29 10:20 | Outpatient (AMB) | payer MEDICARE, SELFPAY ==
--- NOTE | 2024-08-29 10:50 | MHC.OFFVIS ---
Vital Signs 08/29/24 10:55 Height 5 ft 2 in Weight 140 lb BMI 25.6 Intake Visit Reasons: FC- RT hip pubic rami fx Intake Note: Roxanna is a 84 year old female who presents today with a walker and her son for a evaluation if her right hip fx, DOI 07/29/24. Patient states that she was coming out of the car when she slipped on black ice. She landed on her right hip. Patient is doing well since she took some Tylenol which is giving her relief. She states when tylenol wears off her pain is a 3/10 on the pain scale. Allergies No Known Allergies Allergy (Verified 08/29/24 10:53) HPI HPI FC- RT hip pubic rami fx: Details: Ms. Hunter his 84-year-old female who presents to the office today accompanied by her son for evaluation of a right superior and inferior pubic rami fracture that occurred on 07/29/2024. She reports that she was getting out of a vehicle when she slipped on ice and fell landing on the right hip and buttock. She is taking ibuprofen which gives her relief. She is also walking with the use of a walker. She is weight-bearing as tolerated despite recommendations from the emergency department for toe-touch weight-bearing on the right lower extremity. [facility] Medical History Asthma Hypertension Social History (Updated 08/29/24 @ 10:54 by Adali Ferreira) Alcohol intake: never Patient Tobacco Use Status: Never used Tobacco Current occupational status: retired Review of Systems Const All systems reviewed & are unremarkable except as noted in HPI and below Physical Exam Vital Signs: BMI result Body Mass Index 25.6 Const General: cooperative, healthy appearing and no acute distress Resp Effort & Inspection: normal respiratory effort and able to speak in complete sentences Cardio Rate: regular rate Peripheral pulses: Peripheral pulses 2+ throughout Skin Lesions: no lesions Rashes: no rashes Extrem Other: Weight-bearing as tolerated on the right lower extremity walking into the office today. NVI. Assessment & Plan Assessment & Plan (1) Fracture of superior pubic ramus: Code(s): S32.519A - Fracture of superior rim of unspecified pubis, initial encounter for closed fracture Category: Medical (2) Inferior pubic ramus fracture: Code(s): S32.599A - Other specified fracture of unspecified pubis, initial encounter for closed fracture Category: Medical Plan Ms. Hunter his 84-year-old female who presents to the office today accompanied by her son for evaluation of a right superior and inferior pubic rami fracture that occurred on 07/29/2024. She reports that she was getting out of a vehicle when she slipped on ice and fell landing on the right hip and buttock. She is taking ibuprofen which gives her relief. She is also walking with the use of a walker. She is weight-bearing as tolerated despite recommendations from the emergency department for toe-touch weight-bearing on the right lower extremity. I discussed the case and imaging with Dr. Maza who was available but did not see the patient with me in the office today in a collaborative treatment plan was created. The patient was educated on the importance of toe-touch weight-bearing on the right lower extremity and the possibility of complications that could arise which include but are not limited to increase in pain, further displacement of the fracture and hip into the pelvis and progression of osteoarthritis in the right hip. Patient should remain toe-touch weight-bearing with the use of a walker. I would like to see the patient in 4 weeks with repeat x-rays, sooner if needed. X-rays of the right hip which were obtained while in the office today and were reviewed by me, Felicia Hendrix PA-C, revealed redemonstration of right superior and inferior pubic rami fractures. Orders: Orders XR hip RT min 2V Today M25.559 - Pain in unspecified hip Coding Level of Care Code New Pt Level 3 (77876) Diagnoses Fracture of superior pubic ramus S32.519A Inferior pubic ramus fracture S32.599A
[2024-08-29 10:55] VITALS: BMI 25.6
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
--- OUTSIDE RECORDS SUMMARY | 2024-08-29 11:35 | XMS_ITS | Encounter Summary ---
Author Organization [facility] Address [id number] [place] [phone] Care Team Providers Care Stack Clerk Name Role Phone Kevin Maldonado MD Primary Care Provider [phone] Reason for Referral * Consultation (Routine) - Authorized Specialty Diagnoses / Procedures Referred By Gorge pena Referred To Contact Orthopaedics Diagnoses Closed fracture of superior ramus of right pubis, initial encounter ([facility]) Kevin Maldonado MD [address] [place] [address] Phone: tel: fax: Juan Maza MD [address] [place] [phone] Phone: tel: Referral ID Status Reason Start Date Expiration Date Visits Requested Visits Authorized [id number] Authorized Specialty Services Required 08/07/2024 08/07/2025 6 6 Reason for Visit * Reason Onset Date Comments Referral 08/10/2024 [facility] Encounter Details Date Type Department Care Team ([facility] st Contact Info) Description 08/10/2024 Telephone Adult Medicine [address] [phone] Ny Bravo [place] Referral ([facility]) Social History Tobacco Use Types Packs/Day Years Used Date Smoking Tobacco: Former Cigarettes Q uit: 06/25/1997 Smokeless Tobacco: Never Alcohol Use Standard Drinks/Week Comments No 0 (1 standard drink = 0.6 oz pur e alcohol) Comments Unknown Sex and Gender Information Value Date Recorded Sex Assigned at Not on file Legal Sex Female 10:19 AM EST Gender Identity Not on file Sexual Orientation Not on file documented as of this encounter Progress Notes * Hannah Beck RN - 08/13/2024 9:15 AM EST Noted. * Violetta Nelson - 08/13/2024 9:06 AM EST Patient called back. I told her that the referral requested for Jose Guadalupe Morgan was signed off by DR Maldonado. States thank you and if you need her for anything else please call her * Hannah Beck RN - 08/11/2024 2:08 PM EST I left pt a message to call the office at on her home and mobile numbers. * Kevin Maldonado MD - 08/11/2024 1:51 PM EST Referral signed * Ny Bravo [place] - 08/10/2024 4:08 PM EST Referral Request: What insurance does the patient have today? [employer] Referrals cannot be processed if the insurance is not accurate. If the insurance listed above in red is NO BILLING INFORMATION FOUND FOR THIS ENCOUTNER The patients correct insurance must be obtained and registered in [facility] or their referral can not be processed. Is this a retro request? yes. If yes for what date of service do you need the retro referral? 08/07/24 Who is calling to request this referral? Jose Guadalupe Morgan If the caller is not the patient, what is their name? not applicable Ask the patient WHO referred them to this specialty: Patient saw at [facility] for the problem and was told if symptoms did not resolve or worsen they would refer them to this specialty FIRST and LAST NAME of SPECIALIST PATIENT is seeing: Felicia Allen NP What specialty is this? Ortho DIAGNOSIS Patient is being seen for (Not a body part or a procedure): S32.511A Have you seen this SPECIALIST for this PROBLEM/DX before? If YES, when? No Have you checked REVIEW or the APPT DESK to see if this referral has already been done or has visits left? yes Is this visit: Initial Visit Address of Specialist: [address] [place] [address], [address] Phone # of Specialist: [phone] Fax #: (if applicable): [phone] Does patient have an appointment scheduled?: yes Date of appointment- (including a retro-request): 08/07/24 Is this appointment related to: Not MVA, worker compensation, or surgery related documented in this encounter Plan of Treatment Upcoming Encounters Date Type Department Care Team (Late st Contact Info) Description 09/22/2024 1:30 PM EDT Office Visit Adult Medicine [address] [phone] Kevin Maldonado MD [address] [place] [address] 02/10/2025 8:00 AM EDT Office Visit Adult Medicine [address] [phone] Kevin Maldonado MD [address] [place] [address] Scheduled Referrals Name Type Priority Associated Diagnoses Order Schedule Ambulatory referral to Orthopedic Outpatient Referral Routine Closed fracture of superior ramus of right pubis, initial encounter ([facility]) 1 Occurrences starting 08/11/2024 until 08/11/2025 documented as of this encounter Visit Diagnoses Diagnosis Closed fracture of superior ramus of right pubis, initial encounter ([facility])- Primary documented in this encounter Care Teams Stack Clerk Relationship Specialty Start Date End Date Kevin Maldonado MD [address] [place] [id number] PCP - General Internal Medicine 11/17/20 documented as of this encounter
--- OUTSIDE RECORDS SUMMARY | 2024-08-29 11:35 | XMS_ITS | Encounter Summary ---
Author Organization [facility] Address [address] [place] [phone] Care Team Providers Care Director Manufacturing Engineering Name Role Phone Kevin Maldonado MD Primary Care Provider [phone] Reason for Visit * Reason Onset Date Comments vna 08/27/2024 Encounter Details Date Type Department Care Team (Late st Contact Info) Description 08/27/2024 Telephone Adult Medicine [facility] [address] [place] [phone] Kevin Maldonado MD [address] [place] [phone] vna Social History Tobacco Use Types Packs/Day Years [...] as of this encounter Progress Notes * Olvin Jung LPN - 08/27/2024 10:19 AM EST VO were given to Sanna on 08/21/24 Mamie aware * Matthew Cross - 08/27/2024 10:04 AM EST VNA CALL Which [facility]NA office is calling? [facility] Full name of caller: Payal The caller is A nurse Is the caller at the patients home?: no Reason for call: Requesting verbal order for assisted , PT and OT , please contact nurse Does caller need an urgent call back? no Was CONTACT Telephone # obtained above?: yes Fax #: documented in this encounter Plan of Treatment Upcoming Encounters Date Type Department Care Team (Late st Contact Info) Description 09/22/2024 1:30 PM EDT Office Visit Adult [address] [phone] Kevin Maldonado MD [address] [place] [address] 02/10/2025 8:00 AM EDT Office Visit [address] [phone] Kevin Maldonado MD [address] [place] [address] documented as of this encounter Visit Diagnoses Not on filedocumented in this encounter Care Teams Director Manufacturing Engineering Relationship Specialty Start Date End Date Kevin Maldonado MD [address] [place] [address] PCP - General Internal Medicine 11/17/20 documented as of this encounter
--- OUTSIDE RECORDS SUMMARY | 2024-08-29 11:35 | XMS_ITS | Encounter Summary ---
Author Organization [facility] Address [address] [place] [address] Care Team Providers Care Dimension Mill Worker Name Role Phone Kevin Maldonado MD Primary Care Provider [phone] Reason for Visit * Reason Onset Date Comments dry cough 08/26/2024 Encounter Details Date Type Department Care Team (Late st Contact Info) Description 08/26/2024 Telephone Adult Medicine [address] [phone] Margaret Ugarte MA dry cough Social History Tobacco Use Types Packs/Day Years [...] as of this encounter Progress Notes * Cody Lewis RN - 08/26/2024 3:56 PM EST Called and spoke with pt. Pt just d/c'd from rehab on Sunday for fx rt pubis pt sts had a productive cough x 7 dasy has been dry the past two days no fever no sinus congestion. Pt took a cough medication and vomited x once hasn't sicne feels ok now besided dry cough advised to try robitussin dm vicks tea with honey has hosp on 09/22 advisedto call back if no improvement or any new or worsening sx or concerns pt sts a rehab on Sunday nurse said lungs clear. * KYLE zhou - 08/26/2024 3:30 PM EST Pt is calling back best phone number to call her back at is [phone] * Cody Lewis RN - 08/26/2024 3:16 PM EST Called pt mailbox not set up yet unable to leave vm to return call * Margaret Ugarte MA - 08/26/2024 2:56 PM EST Patient call requires triage: Symptoms patient is presenting: dry cough How long has patient had these symptoms?: 2 days For ALL patients calling to schedule any appointment (routine, sick visit, follow up, consult, etc.) in the outpatient setting please ask the following questions: Do you have fever of higher than 101, sore throat with difficulty swallowing or severe shortness ofbreath? no If YES to any of these above symptoms, send a message to triage and do not book. Red dot. If no, an audio or video visit should be booked. Have you had close contact with someone with Coronavirus in the last 14 days? no Have you traveled abroad? no Have you traveled recently to another state outside of [place], [place], [place], [place], [place], [place], [place]? no o If yes, did you quarantine for 14 days or have a negative covid test? no If yes to any of the above, patient is not to be scheduled in office until after 14 day quarantine or negative covid test. If pain or injury related was it due to an accident at work or from a motor vehicle accident? If yes, date of accident/Injury: No If yes, gather 3rd libertarian insurance information Third Libertarian Information: not applicable PCP: Kevin Maldonado MD [facility] / [facility] / Product Type: *No Product type* / documented in this encounter Plan of Treatment Upcoming Encounters Date Type Department Care Team (Late st Contact Info) Description 09/22/2024 1:30 PM EDT Office Visit Adult Medicine [address] [phone] Kevin Maldonado MD [address] [place] [address] 02/10/2025 8:00 AM EDT Office Visit [address] [phone] Kevin Maldonado MD [address] [place] [address] documented as of this encounter Visit Diagnoses Not on filedocumented in this encounter Care Teams Dimension Mill Worker Relationship Specialty Start Date End Date Kevin Maldonado MD [address] [place] [address] PCP - General Internal Medicine 11/17/20 documented as of this encounter
--- OUTSIDE RECORDS SUMMARY | 2024-08-29 11:35 | XMS_ITS | Encounter Summary ---
Author Organization [facility] Address [address] [place] [address] Care Team Providers Care Cargo Supervisor Name Role Phone Kevin Maldonado MD Primary Care Provider [phone] Reason for Visit * Reason Onset Date Comments triage 08/27/2024 Bhupinder was ana martell on this call Encounter Details Date Type Department Care Team ([facility] st Contact Info) Description 08/27/2024 Telephone Adult Medicine [facility] [address] [place] [phone] Kevin Maldonado MD [address] [place] [phone] triage (Bhupinder was working on this call ) Social History Tobacco Use Types Packs/Day Years [...] as of this encounter Progress Notes * Kevin Maldonado MD - 08/28/2024 6:24 PM EST Do we know why she is noting the hctz, seems like the answer here is that she should be. If she is having some type of side of the hctz then please asked her to double up on her lisinopril. If the is no contra-indication please have her resume the hctz pt does have appointment with me 09/22/2024 * Hannah Beck RN - 08/27/2024 4:15 PM EST Called and spoke to Danielle. She states pt's BP was elevated today at 170/90. She states pt's BP was elevated during her hospital stay as well 160's/80's and no adjustments weremade to her medications. She states pt is currently taking Lisinopril 5 mg daily for her BP. She is not taking Hctz 12.5 mg. Pt reports minimal pain in her groin and low back with ambulation. She was prescribed Ibuprofen for the pain but is not taking it. She is taking OTC Tylenol with good effect. Pt is supposed to be toe touch weight bearing but has taken it upon herself to start bearing all ofher weight. She has a follow up appointment with ortho on Sunday and expects she will be discharged and no longer get VNA services. She has a hospital follow up on 09/22/24. Per Danielle pt is asymptomatic with her elevated BP. No chest pain, shortness of breath, dizziness, increased fatigue. * Pari Sommer - 08/27/2024 3:59 PM EST VNA CALL Which VNA office is calling? [facility] Full name of caller: danielle The caller is A nurse Is the caller at the patients home?: no Reason for call: VNA is calling to let PCP know she went to do evaluation on PT and that pt BP has been elevated and has been all day. PT doesn't have a apt until 09/22/24 Does caller need an urgent call back? yes Was CONTACT Telephone # obtained above?: yes Fax #: documented in this encounter Plan of Treatment Upcoming Encounters Date Type Department Care Team (Late st Contact Info) Description 09/22/2024 1:30 PM EDT Office Visit Adult Medicine [facility] [address] [place] [phone] Kevin Maldonado MD [address] [place] [phone] 02/10/2025 8:00 AM EDT Office Visit Adult Medicine [facility] [address] [place] [phone] Kevin Maldonado MD [address] [place] [address] documented as of this encounter Visit Diagnoses Not on filedocumented in this encounter Care Teams Cargo Supervisor Relationship Specialty Start Date End Date Kevin Maldonado MD [address] [place] [phone] PCP - General Internal Medicine 11/17/20 documented as of this encounter
--- OUTSIDE RECORDS SUMMARY | 2024-08-29 11:35 | XMS_ITS | Encounter Summary ---
Author Organization [facility] Address [address] [place] [address] Care Team Providers Care Welder Manufacture Name Role Phone Kevin Maldonado MD Primary Care Provider [phone] Encounter Details Date Type Department Care Team (Late st Contact Info) Description 08/01/2024 Lab Requisition [facility] [address] [facility] [place] [address] Valerie Singletary PA [address] [phone] Type 2 diabetes mellitus without complications (CMS/HCC); Chronic obstructive pulmonary disease, unspecified (CMS/HCC); Elevated white blood cell count, unspecified Social History Tobacco Use Types Packs/Day Years [...] on file documented as of this encounter Plan of Treatment Upcoming Encounters Date Type Department Care Team (Late st Contact Info) Description 09/22/2024 1:30 PM EDT Office Visit Adult Medicine [address] [phone] Kevin Maldonado MD [address] [place] [address] 02/10/2025 8:00 AM EDT Office Visit Adult Medicine [address] [phone] Kevin Maldonado MD [address] [place] [address] documented as of this encounter Procedures Procedure Name Priority Date/Time Associated Diagnosis Comments COMPLETE BLOOD COUNT Routine 08/01/2024 5:13 AM EST Type 2 diabetes mellitus without complications (CMS/HCC) Chronic obstructive pulmonary disease, unspecified (CMS/HCC) Elevated white blood cell count, unspecified HEMOGLOBIN A1C Routine 08/01/2024 5:13 AM EST Type 2 diabetes mellitus without complications (CMS/HCC) Chronic obstructive pulmonary disease, unspecified (CMS/HCC) Elevated white blood cell count, unspecified COMPREHENSIVE METABOLIC PANEL Routine 08/01/2024 5:13 AM EST Type 2 diabetes mellitus without complications (CMS/HCC) Chronic obstructive pulmonary disease, unspecified (CMS/HCC) Elevated white blood cell count, unspecified documented in this encounter Results * Hemoglobin A1c (08/01/2024 5:13 AM EST) Hemoglobin A1C 4.9 <6.5 % LAB CHEMISTRY METHOD 08/01/2024 12:36 PM EST [facility] Mean Bld Glu Estim. 94 mg/dL LAB CHEMISTRY METHOD 08/01/2024 12:36 PM EST [facility] Blood Venous blood specimen / Unknown Venipuncture / Unknown 08/01/2024 5:13 AM EST 08/01/2024 8:44 AM EST us Valerie CORDON LAB BLOOD ORDERABLES Final Re sult [facility] [address] [place] [address], * (ABNORMAL) Comprehensive metabolic panel (08/01/2024 5:13 AM EST) Sodium 137 133 - 145 mmol/L LAB CHEMISTRY METHOD 08/01/2024 9:59 AM [facility] Potassium 4.5 3.5 - 5.5 mmol/L LAB CHEMISTRY METHOD 08/01/2024 9:59 AM [facility] Chloride 105 96 - 110 mmol/L LAB CHEMISTRY METHOD 08/01/2024 9:59 AM [facility] CO2 25 21 - 32 mmol/L LAB CHEMISTRY METHOD 08/01/2024 9:59 AM [facility] Anion Gap 7 3 - 11 LAB CHEMISTRY METHOD 08/01/2024 9:59 AM [facility] Glucose 87 70 - 100 mg/dL LAB CHEMISTRY METHOD 08/01/2024 9:59 AM [facility] BUN 36(H) 5 - 25 mg/dL LAB CHEMISTRY METHOD 08/01/2024 9:59 AM [facility] Creatinine 1.46(H) 0.50 - 1.10 mg/dL LAB CHEMISTRY METHOD 08/01/2024 9:59 AM [facility] eGFR 35(L) >=60 mL/min/1. 73m2 LAB CHEMISTRY METHOD 08/01/2024 9:59 AM [facility] Comment:Calculation based on the??Chronic Kidney Disease Epidemiology Collaboration (CKD-EPI) equation refit??without adjustment for race. BUN/Creatinine Ratio 24.7 LAB CHEMISTRY METHOD 08/01/2024 9:59 AM [facility] Calcium 8.9 8.5 - 10.5 mg/dL LAB CHEMISTRY METHOD 08/01/2024 9:59 AM [facility] AST (SGOT) 13 10 - 42 unit/L LAB CHEMISTRY METHOD 08/01/2024 9:59 AM [facility] ALT (SGPT) 17 10 - 60 unit/L LAB CHEMISTRY METHOD 08/01/2024 9:59 AM [facility] Alkaline Phosphatase 61 42 - 121 unit/L LAB CHEMISTRY METHOD 08/01/2024 9:59 AM [facility] Total Protein 5.8(L) 6.0 - 8.0 g/dL LAB CHEMISTRY METHOD 08/01/2024 9:59 AM [facility] Albumin 3.3 3.2 - 5.0 g/dL LAB CHEMISTRY METHOD 08/01/2024 9:59 AM [facility] Total Bilirubin 0.7 0.0 - 1.4 mg/dL LAB CHEMISTRY METHOD 08/01/2024 9:59 AM [facility] Blood Venous blood specimen / Unknown Venipuncture / Unknown 08/01/2024 5:13 AM EST 08/01/2024 8:44 AM EST us Valerie CORDON LAB BLOOD ORDERABLES Final Re sult [facility] [address] [place] [address], * (ABNORMAL) Complete blood count (08/01/2024 5:13 AM EST) WBC 7.0 4.8 - 10.8 K/mcL LAB HEMETOLOGY METHOD 08/01/2024 9:33 AM [facility] RBC 3.70(L) 3.80 - 4.80 M/mcL LAB HEMETOLOGY METHOD 08/01/2024 9:33 AM [facility] Hemoglobin 11.4(L) 11.5 - 16.0 g/dL LAB HEMETOLOGY METHOD 08/01/2024 9:33 AM [facility] Hematocrit 35.7 35.0 - 47.0 % LAB HEMETOLOGY METHOD 08/01/2024 9:33 AM [facility] MCV 97.0 79.0 - 98.0 FL LAB HEMETOLOGY METHOD 08/01/2024 9:33 AM [facility] MCH 31.0 27.0 - 32.0 pcg LAB HEMETOLOGY METHOD 08/01/2024 9:33 AM EST [facility] MCHC 31.9(L) 32.0 - 37.0 g/dL LAB HEMETOLOGY METHOD 08/01/2024 9:33 AM [facility] RDW 12.4 11.0 - 15.0 % LAB HEMETOLOGY METHOD 08/01/2024 9:33 AM [facility] Platelets 200 130 - 400 K/mcL LAB HEMETOLOGY METHOD 08/01/2024 9:33 AM [facility] MPV 10.9 7.0 - 11.0 FL LAB HEMETOLOGY METHOD 08/01/2024 9:33 AM [facility] NRBC 0.0 <1.0 % LAB HEMETOLOGY METHOD 08/01/2024 9:33 AM [facility] NRBC Absolute 0.00 <0.10 K/mcL LAB HEMETOLOGY METHOD 08/01/2024 9:33 AM [facility] Blood Venous blood specimen / Unknown Venipuncture / Unknown 08/01/2024 5:13 AM EST 08/01/2024 8:44 AM EST us Valerie CORDON LAB BLOOD ORDERABLES Final Re sult [facility] [address] [place] [address], documented in this encounter Visit Diagnoses Diagnosis Type 2 diabetes mellitus without complications (CMS/HCC) Chronic obstructive pulmonary disease, unspecified (CMS/HCC) Elevated white blood cell count, unspecified documented in this encounter Care Teams Welder Manufacture Relationship Specialty Start Date End Date Kevin Maldonado MD [address] [place] [phone] PCP - General Internal Medicine 11/17/20 documented as of this encounter
--- OUTSIDE RECORDS SUMMARY | 2024-08-29 11:35 | XMS_ITS | Encounter Summary ---
Author Organization [facility] Address [address] [place] [phone] Care Team Providers Care Cloth Finisher Name Role Phone Kevin Maldonado MD Primary Care Provider [phone] Reason for Visit * Reason Onset Date Comments vna 08/21/2024 Encounter Details Date Type Department Care Team (Late st Contact Info) Description 08/21/2024 Telephone Adult Medicine [address] [phone] Olvin Jung LPN vna Social History Tobacco Use Types Packs/Day [...] Progress Notes * Olvin Jung LPN - 08/21/2024 10:49 AM EST VO given to Sanna * BRAVO Ley - 08/21/2024 10:38 AM EST Reviewed as covering Please give VO for nursing, PT and OT Thank you * Olvin Jung LPN - 08/21/2024 10:12 AM EST TC from Sanna STUART is requesting VO for PT, OT and nursing. Please review and advise. For Dr. Maldonado Thank you Please send response to nurse triage [facility] rehab visit booked for 09/22/24 Last office visit 04/22/25 documented in this encounter Plan of Treatment Upcoming Encounters Date Type Department Care Team (Late st Contact Info) Description 09/22/2024 1:30 PM EDT Office Visit [address] [phone] Kevin Maldonado MD [address] [place] [address] 02/10/2025 8:00 AM EDT Office Visit [address] [phone] Kevin Maldonado MD [address] [place] [address] documented as of this encounter Visit Diagnoses Not on filedocumented in this encounter Care Teams Cloth Finisher Relationship Specialty Start Date End Date Kevin Maldonado MD [address] [place] [address] PCP - General Internal Medicine 11/17/20 documented as of this encounter
== END 2024-08-29 11:10 | disposition home or self-care (01) ==
PROVIDERS: PCP Internal Medicine; Visit Provider Physician Assistant
DX: S32.511A Fracture of superior rim of right pubis, initial encounter for closed fracture (principal); S32.591A Other specified fracture of right pubis, initial encounter for closed fracture; W00.0XXA Fall on same level due to ice and snow, initial encounter
CPT/HCPCS: 99203

== ENCOUNTER → 2024-08-29 10:25 | Outpatient (BNV) | payer MEDICARE, SELFPAY | PROVIDERS: Visit Provider Radiology Diagnostic Radiology | DX: M25.551 Pain in right hip (principal); S32.511A Fracture of superior rim of right pubis, initial encounter for closed fracture; S32.591A Other specified fracture of right pubis, initial encounter for closed fracture | CPT/HCPCS: 73502 ==

== ENCOUNTER 2024-09-26 08:09 | Outpatient (REF) | payer MEDICARE, SELFPAY ==
--- NOTE | ~2024-09-26 | XR_ITS ---
EXAMINATION: XR HIP 2 OR MORE VIEWS RIGHT HISTORY: M25.559 - Pain in unspecified hip COMPARISON: Comparison is made with the prior examination dated 08/29/2024. FINDINGS: A single AP view of the pelvis and two views of the right hip are submitted. The bones are osteopenic. Again seen are fractures of the right superior and inferior pubic rami. There is greater callus formation about the inferior pubic ramus fracture, consistent with healing. The fracture lines remain visible. There is mild narrowing of the hip joint space. The soft tissues are unremarkable. XR/XR hip RT min 2V IMPRESSION: Healing fracture of the right inferior pubic ramus. The superior pubic ramus fracture is unchanged in appearance. Electronically signed by: Juan Carlos Cat MD 09/26/2024 03:01 PM EDT
--- OUTSIDE RECORDS SUMMARY | 2024-09-29 08:24 | XMS_ITS | Encounter Summary ---
Author Organization [facility] Address [address] [place] [address] Care Team Providers Care Bus Repair Supervisor Name Role Phone Kevin Maldonado MD Primary Care Provider [phone] Encounter Details Date Type Department Care Team (Late st Contact Info) Description 08/01/2024 Lab Requisition [facility] - Main Lab [address] [facility] [employer] [place] [address] Valerie Singletary PA [address] [address] Type 2 diabetes mellitus without [...] 10:30 AM EDT Office Visit Adult Medicine [address] [phone] Kevin Maldonado MD [address] [place] [address] 02/10/2025 8:00 AM EDT Office Visit Adult Medicine [address] [phone] Kevin Maldonado MD [address] [place] [address] documented as of this encounter Procedures Procedure [...] LAB CHEMISTRY METHOD 08/01/2024 12:[address] [facility] Mean Bld Glu Estim. 94 mg/dL LAB CHEMISTRY METHOD 08/01/2024 12:[address] [facility] Blood Venous blood specimen / Unknown Venipuncture / Unknown 08/01/2024 5:13 AM EST 08/01/2024 8:44 AM EST us Valerie CORDON LAB BLOOD ORDERABLES Final Re sult [facility]) [facility] [address] [place] [address], * (ABNORMAL) Comprehensive metabolic panel (08/01/2024 5:13 AM EST) Sodium 137 133 - 145 mmol/L LAB CHEMISTRY METHOD 08/01/2024 9:59 AM [facility] Potassium 4.5 3.5 - 5.5 mmol/L LAB CHEMISTRY METHOD 08/01/2024 9:59 AM [facility] Chloride 105 96 - 110 mmol/L LAB CHEMISTRY METHOD 08/01/2024 9:59 AM [facility] CO2 25 21 - 32 mmol/L LAB CHEMISTRY METHOD 08/01/2024 9:59 AM [facility] Anion Gap 7 3 - 11 LAB CHEMISTRY METHOD 08/01/2024 9:59 AM [facility] Glucose 87 70 - 100 mg/dL LAB CHEMISTRY METHOD 08/01/2024 9:59 AM [facility] BUN 36(H) 5 - 25 mg/dL LAB CHEMISTRY METHOD 08/01/2024 9:59 AM [facility] Creatinine 1.46(H) 0.50 - 1.10 mg/dL LAB CHEMISTRY METHOD 08/01/2024 9:59 AM [facility] eGFR 35(L) >=60 mL/min/1. 73m2 LAB CHEMISTRY METHOD 08/01/2024 9:59 AM [facility] Comment:Calculation based on the??Chronic Kidney Disease Epidemiology Collaboration (CKD-EPI) equation refit??without adjustment for race. BUN/Creatinine Ratio 24.7 LAB CHEMISTRY METHOD 08/01/2024 9:59 AM [facility] Calcium 8.9 8.5 - 10.5 mg/dL LAB CHEMISTRY METHOD 08/01/2024 9:59 AM [facility] AST (SGOT) 13 10 - 42 unit/L LAB CHEMISTRY METHOD 08/01/2024 9:59 AM [facility] ALT (SGPT) 17 10 - 60 unit/L LAB CHEMISTRY METHOD 08/01/2024 9:59 AM [facility] Alkaline Phosphatase 61 42 - 121 unit/L LAB CHEMISTRY METHOD 08/01/2024 9:59 AM [facility] Total Protein 5.8(L) 6.0 - 8.0 g/dL LAB CHEMISTRY METHOD 08/01/2024 9:59 AM [facility] Albumin 3.3 3.2 - 5.0 g/dL LAB CHEMISTRY METHOD 08/01/2024 9:59 AM [facility] Total Bilirubin 0.7 0.0 - 1.4 mg/dL LAB CHEMISTRY METHOD 08/01/2024 9:59 AM [facility] Blood Venous blood specimen / Unknown Venipuncture / Unknown 08/01/2024 5:13 AM EST 08/01/2024 8:44 AM EST us Valerie CORDON LAB BLOOD ORDERABLES Final Re sult [facility] [address] [place] [address], * (ABNORMAL) Complete blood count (08/01/2024 5:13 AM EST) WBC 7.0 4.8 - 10.8 K/mcL LAB HEMETOLOGY METHOD 08/01/2024 9:33 AM [facility] RBC 3.70(L) 3.80 - 4.80 M/mcL LAB HEMETOLOGY METHOD 08/01/2024 9:33 AM [facility] Hemoglobin 11.4(L) 11.5 - 16.0 g/dL LAB HEMETOLOGY METHOD 08/01/2024 9:33 AM [facility] Hematocrit 35.7 35.0 - 47.0 % LAB HEMETOLOGY METHOD 08/01/2024 9:33 AM [facility] MCV 97.0 79.0 - 98.0 FL LAB HEMETOLOGY METHOD 08/01/2024 9:33 AM [facility] MCH 31.0 27.0 - 32.0 pcg LAB HEMETOLOGY METHOD 08/01/2024 9:[address] [facility] MCHC 31.9(L) 32.0 - 37.0 g/dL LAB HEMETOLOGY METHOD 08/01/2024 9:33 AM [facility] RDW 12.4 11.0 - 15.0 % LAB HEMETOLOGY METHOD 08/01/2024 9:33 AM [facility] Platelets 200 130 - 400 K/mcL LAB HEMETOLOGY METHOD 08/01/2024 9:33 AM [facility] MPV 10.9 7.0 - 11.0 FL LAB HEMETOLOGY METHOD 08/01/2024 9:33 AM [facility] NRBC 0.0 <1.0 % LAB HEMETOLOGY METHOD 08/01/2024 9:33 AM [facility] NRBC Absolute 0.00 <0.10 K/mcL LAB HEMETOLOGY METHOD 08/01/2024 9:33 AM [facility] Blood Venous blood specimen / Unknown Venipuncture / Unknown 08/01/2024 5:13 AM EST 08/01/2024 8:44 AM EST us Valerie CORDON LAB BLOOD ORDERABLES Final Re sult [facility] [address] [place] [address], documented in this encounter Visit Diagnoses Diagnosis Type 2 diabetes mellitus without complications Chronic obstructive pulmonary disease, unspecified Elevated white blood cell count, unspecified documented in this encounter Care Teams Bus Repair Supervisor Relationship Specialty Start Date End Date Kevin Maldonado MD [address] [place] [address] PCP - General Internal Medicine 11/17/20 documented as of this encounter
--- OUTSIDE RECORDS SUMMARY | 2024-09-29 08:24 | XMS_ITS | Clinical Summary ---
Author Organization [address] [facility] Address [address] [place] [address] Phone Care Team Providers Care Audio Visual Tech Name Role Phone Kevin Maldonado MD Primary Care Provider [phone] Allergies Active Allergy Reactions Criticality Noted Date Comments Amlodipine Diarrhea High 04/22/2017 Diarrhea, leg cramps Medications lisinopriL (PRINIVIL,ZESTRIL) 5 mg tablet Take 1 Tablet by mouth daily for 180 days. 03/17/20 24 Active magnesium glycinate 100 mg tablet Take by mouth. Activ e albuterol HFA (PROAIR HFA ; PROVENTIL HFA ; VENTOLIN HFA) 90 mcg/actuation inhaler Inhale 2 Puffs into the lungs every 4 hours as needed for Cough or Wheezing. 02/21/20 24 Active atorvastatin (LIPITOR) 20 mg tablet Take 1 tablet by mouth at bedtime. 07/19/19 22 Active fluticasone propionate (FLONASE) 50 mcg/actuation nasal spray Administer 2 sprays into affected nostril(s) 1 (one) time each day. 04/18/20 24 Active hydroCHLOROthiazid e (MICROZIDE) 12.5 mg capsule Take 1 capsule (12.5 mg total) by mouth 1 (one) time each day. 12/11/19 24 Active Trelegy Ellipta 100-62.5-25 mcg inhalerIndications :Stage 2 moderate COPD by GOLD classification (CMS/HCC) INHALE 1 PUFF INTO LUNGS ONCE A DAY. RINSE MOUTH WITH WATER AFTER USE & SPIT DO NOT SWALLOW. 60 each 1 07/24/19 25 Active benzonatate (TESSALON) 100 mg capsule Take 1 capsule (100 mg total) by mouth 3 (three) times a day if needed for cough. Do not crush or chew. 42 capsule 08/30/19 025 Active Problems Problem Noted Date Diagnosed Date [...] Care Team Description 09/26/2024 Telephone Adult Medicine [address] [phone] Ny Bravo [place] faxed order ([facility] order #[id number]) 09/11/2024 Telephone Adult Medicine [address] [phone] Kevni Maldonado MD Reschedule; Cough 09/04/2024 Telephone Adult Medicine [address] [phone] Ny Bravo [place] faxed order ([facility] order #[id number]) 08/29/2024 Telephone Adult Medicine [address] [phone] Hannah Beck RN VNA 08/29/2024 Nurse Triage Adult [address] [phone] Kevin Maldonado MD VNA 08/27/2024 Telephone Adult [address] [phone] Kevin Maldonado MD triage (Bhupinder was working on this call ) 08/27/2024 Telephone Adult [address] [phone] Kevin Maldonado MD vna 08/26/2024 Telephone Adult [address] [phone] Margaret Ugarte MA dry cough 08/21/2024 Telephone Adult [address] [phone] Olvin Jung LPN vna 08/10/[address] [phone] Ny Bravo [place] Referral ([facility]) 08/01/2024 Lab Requisition [facility] - Main Lab [address] [place] [phone] Valerie Singletary PA Type 2 diabetes mellitus without complications ([facility]/HCC); Chronic obstructive pulmonary disease, unspecified (CMS/HCC); Elevated [...] 10:30 AM EDT Office Visit Adult Medicine [address] [phone] Kevin Maldonado MD [address] [place] [address] 02/10/2025 8:00 AM EDT Office Visit Adult Medicine [facility] [address] [place] [phone] Kevin Maldonado MD [address] [place] [address] Health Maintenance Due Date Last Done Comments [...] AM EST) WBC 7.0 4.8 - 10.8 [facility] LAB HEMETOLOGY METHOD 08/01/2024 9:33 AM [facility] RBC 3.70(L) 3.80 - 4.80 M/mcL LAB HEMETOLOGY METHOD 08/01/2024 9:33 AM [facility] Hemoglobin 11.4(L) 11.5 - 16.0 g/dL LAB HEMETOLOGY METHOD 08/01/2024 9:33 AM [facility] Hematocrit 35.7 35.0 - 47.0 % LAB HEMETOLOGY METHOD 08/01/2024 9:33 AM [facility] MCV 97.0 79.0 - 98.0 FL LAB HEMETOLOGY METHOD 08/01/2024 9:33 AM [facility] MCH 31.0 27.0 - 32.0 pcg LAB HEMETOLOGY METHOD 08/01/2024 9:33 AM [facility] MCHC 31.9(L) 32.0 - 37.0 g/dL LAB HEMETOLOGY METHOD 08/01/2024 9:33 AM [facility] RDW 12.4 11.0 - 15.0 % LAB HEMETOLOGY METHOD 08/01/2024 9:33 AM [facility] Platelets 200 130 - 400 K/mcL LAB HEMETOLOGY METHOD 08/01/2024 9:33 AM [facility] MPV 10.9 7.0 - 11.0 FL LAB HEMETOLOGY METHOD 08/01/2024 9:33 AM [facility] NRBC 0.0 <1.0 % LAB HEMETOLOGY METHOD 08/01/2024 9:33 AM [facility] NRBC Absolute 0.00 <0.10 K/mcL LAB HEMETOLOGY METHOD 08/01/2024 9:33 AM [facility] Blood Venous blood specimen / Unknown Venipuncture / Unknown 08/01/2024 5:13 AM EST 08/01/2024 8:44 AM EST Valerie CORDON LAB BLOOD ORDERABLES Final Re sult [facility] [address] [place] [address], [place] [phone] * Hemoglobin A1c (08/01/2024 5:13 AM EST) Pathologist [facility] Hemoglobin A1C 4.9 <6.5 % LAB CHEMISTRY METHOD 08/01/2024 12:36 PM EST [facility] Mean Bld Glu Estim. 94 mg/dL LAB CHEMISTRY METHOD 08/01/2024 12:36 PM [facility] Blood Venous blood specimen / Unknown Venipuncture / Unknown 08/01/2024 5:13 AM EST 08/01/2024 8:44 AM EST Valerie CORDON LAB BLOOD ORDERABLES Final Re sult [facility] [address] [place] [address], [place] [phone] * (ABNORMAL) Comprehensive metabolic panel (08/01/2024 5:13 AM EST) [facility] Sodium 137 133 - 145 mmol/L LAB CHEMISTRY METHOD 08/01/2024 9:59 AM EST [facility] Potassium 4.5 3.5 - 5.5 mmol/L LAB CHEMISTRY METHOD 08/01/2024 9:59 AM EST [facility] Chloride 105 96 - 110 mmol/L LAB CHEMISTRY METHOD 08/01/2024 9:59 AM EST [facility] CO2 25 21 - 32 mmol/L LAB CHEMISTRY METHOD 08/01/2024 9:59 AM EST [facility] Anion Gap 7 3 - 11 LAB CHEMISTRY METHOD 08/01/2024 9:59 AM [facility] Glucose 87 70 - 100 mg/dL LAB CHEMISTRY METHOD 08/01/2024 9:59 AM [facility] BUN 36(H) 5 - 25 mg/dL LAB CHEMISTRY METHOD 08/01/2024 9:59 AM [facility] Creatinine 1.46(H) 0.50 - 1.10 mg/dL LAB CHEMISTRY METHOD 08/01/2024 9:59 AM [facility] eGFR 35(L) >=60 mL/min/1. 73m2 LAB CHEMISTRY METHOD 08/01/2024 9:59 AM [facility] Comment:Calculation based on the??Chronic Kidney Disease Epidemiology Collaboration (CKD-EPI) equation refit??without adjustment for race. BUN/Creatinine Ratio 24.7 LAB CHEMISTRY METHOD 08/01/2024 9:59 AM [facility] Calcium 8.9 8.5 - 10.5 mg/dL LAB CHEMISTRY METHOD 08/01/2024 9:59 AM [facility] AST (SGOT) 13 10 - 42 unit/L LAB CHEMISTRY METHOD 08/01/2024 9:59 AM [facility] ALT (SGPT) 17 10 - 60 unit/L LAB CHEMISTRY METHOD 08/01/2024 9:59 AM [facility] Alkaline Phosphatase 61 42 - 121 unit/L LAB CHEMISTRY METHOD 08/01/2024 9:59 AM [facility] Total Protein 5.8(L) 6.0 - 8.0 g/dL LAB CHEMISTRY METHOD 08/01/2024 9:59 AM [facility] Albumin 3.3 3.2 - 5.0 g/dL LAB CHEMISTRY METHOD 08/01/2024 9:59 AM [facility] Total Bilirubin 0.7 0.0 - 1.4 mg/dL LAB CHEMISTRY METHOD 08/01/2024 9:59 AM [facility] Blood Venous blood specimen / Unknown Venipuncture / Unknown 08/01/2024 5:13 AM EST 08/01/2024 8:44 AM EST Valerie CORDON LAB BLOOD ORDERABLES Final Re sult [facility] [address] [place] [address], * (ABNORMAL) Lipid panel (02/07/2024) LDL/HDL Ratio [...] to have osteoporosis by WHO criteria. The [facility] Department of Internal Medicine recommends using National [...] alternative screening schedule based on kylee Bowers., [facility] July 13, 2011 for patients with [...] to have osteoporosis by WHO criteria. The [facility] Department of Internal Medicine recommendsusing National Osteoporosis [...] higher), BMD testingevery 15 years Ariana CORDON [facility] [place]XA PROCEDURES Final Result from Last 3 Months or Most Recently Relevant to Health Maintenance Insurance [employer] Care Teams Audio Visual Tech Relationship Specialty Start Date End Date Kevin Maldonado MD [address] [place] [address] PCP - General Internal Medicine 11/17/20
--- OUTSIDE RECORDS SUMMARY | 2024-09-29 08:24 | XMS_ITS | Encounter Summary ---
Author Organization [facility] Address [address] [place] [phone] Care Team Providers Care Stabber Name Role Phone Kevin Maldonado MD Primary Care Provider [phone] Reason for Visit * Reason Onset Date Comments VNA 08/29/2024 Encounter Details Date Type Department Care Team (Late Contact Info) Description 08/29/2024 Telephone Adult Medicine [address] [phone] Hannah Beck, RIKI VNA Social History Tobacco [...] AM EDT Office Visit Adult Medicine [address] [phone] Kevin Maldonado MD [address] [place] [address] 02/10/2025 8:00 AM EDT Office Visit Adult Medicine [address] [phone] Kevin Maldonado MD [address] [place] [address] documented as of this encounter Visit Diagnoses Not on filedocumented in this encounter Care Teams Stabber Relationship Specialty Start Date End Date Kevin Maldonado MD [address] [place] [address] PCP - General Internal Medicine 11/17/20 documented as of this encounter
--- OUTSIDE RECORDS SUMMARY | 2024-09-29 08:24 | XMS_ITS | Encounter Summary ---
Author Organization [facility] Address [address] [place] [address] Care Team Providers Care Forest Supervisor Name Role Phone Kevin Maldonado MD Primary Care Provider [phone] Reason for Visit * Reason Onset Date Comments faxed order 09/26/2024 [facility] nurse order #[id number] Encounter Details Date Type Department Care Team (Late Contact Info) Description 09/26/2024 Telephone Adult Medicine [address] [phone] Ny Bravo [place] faxed order ([facility] nurse order #[id number]) Social History Tobacco Use Types Packs/Day Years [...] Received orders from [facility] nurse order #[id number]. Please sign and fax to [phone] documented in this encounter Plan of Treatment Upcoming Encounters Date Type Department Care Team ([facility] Contact Info) Description 10/06/2024 10:30 AM EDT Office Visit Adult Medicine [address] [phone] Kevin Maldonado MD [address] [place] [address] 02/10/2025 8:00 AM EDT Office Visit Adult Medicine [address] [phone] Kevin Maldonado MD [address] [place] [address] documented as of this encounter Visit Diagnoses Not on filedocumented in this encounter Care Teams Forest Supervisor Relationship Specialty Start Date End Date Kevin Maldonado MD [address] [place] [address] PCP - General Internal Medicine 11/17/20 documented as of this encounter
== END 2024-09-26 08:10 | disposition home or self-care (01) ==
LOC: HO.HOSX 08:09
PROVIDERS: Visit Provider Physician Assistant
DX: S32.591A Other specified fracture of right pubis, initial encounter for closed fracture (principal); S32.511A Fracture of superior rim of right pubis, initial encounter for closed fracture
CPT/HCPCS: 73502; 99212

== ENCOUNTER 2024-09-26 11:23 | Outpatient (AMB) | payer MEDICARE, SELFPAY ==
--- NOTE | 2024-09-26 11:31 | A.OFFVIS_ITS ---
Vital Signs 09/26/24 11:39 Height 5 ft 2 in Weight 140 lb BMI 25.6 Intake Visit Reasons: O/V RT hip pubic rami fx 07/29/23 Intake Note: Roxanna is a 84 year old female who presents today with a walker and her son for a evaluation if her right hip fx, DOI 07/29/24. Patient states she is doing well, little to no pain at the moment. Allergies No Known Allergies Allergy (Verified 09/26/24 11:39) HPI HPI O/V RT hip pubic rami fx 07/29/23: Details: Ms. Hunter is an 84-year-old female who presents the office today for follow-up of right superior inferior pubic rami fractures. She presents the office today accompanied by her son. She has been using a walker to assist with ambulation but does not fully understand the concept of toe-touch weight-bearing. She is essentially putting full weight on her toes during ambulation. She denies any pain or discomfort. [facility] History Asthma Hypertension Social History Alcohol intake: never Patient Tobacco Use Status: Never used Tobacco Current occupational status: retired Review of Systems Const All systems reviewed & are unremarkable except as noted in HPI and below Physical Exam Vital Signs: BMI result Body Mass Index 25.6 Const General: cooperative, healthy appearing and no acute distress Resp Effort & Inspection: normal respiratory effort and able to speak in complete se ntences Cardio Rate: regular rate Peripheral pulses: Peripheral pulses 2+ throughout Skin Lesions: no lesions Rashes: no rashes Extrem Other: Weight-bearing as tolerated on the right lower extremity walking into the office today. NVI. Assessment & Plan Assessment & Plan (1) Fracture of superior pubic ramus: Code(s): S32.519A - Fracture of superior rim of unspecified pubis, initial encounter for closed fracture Category: Medical (2) Inferior pubic ramus fracture: Code(s): S32.599A - Other specified fracture of unspecified pubis, initial encounter for closed fracture Category: Medical Plan Ms. Hunter is an 84-year-old female who presents the office today for follow-up of right superior inferior pubic rami fractures. She presents the office today accompanied by her son. She has been using a walker to assist with ambulation but does not fully understand the concept of toe-touch weight-bearing. She is essentially putting full weight on her toes during ambulation. She denies any pain or discomfort. Along the office today, I recommended that the patient continue toe-touch weight-bearing angry demonstrated how to perform this while using the walker. Patient is adamant that she is not going to continue with the weight-bearing restrictions. Additionally, she requested permission to resume driving. At this time is the patient is not fully weight-bearing I cannot clear her for driving. Again, I did advise as to the patient but it does not appear as though she is going to continue with these restrictions. I agree educated the patient on the dangers of weight-bearing to soon with this type of injury including further displacement and the hip going into the pelvis. I would like to see her in 4 weeks with repeat x-rays, sooner if needed. X-rays of the right hip and pelvis which were obtained while in the office today and were reviewed by me, Felicia Hendrix PA-C, revealed routine healing superior and inferior pubic rami fractures. Orders: Orders XR hip RT min 2V Today M25.559 - Pain in unspecified hip Coding Level of Care Code Est Pt Level 3 (79842) Diagnoses Fracture of superior pubic ramus S32.519A Inferior pubic ramus fracture S32.599A
[2024-09-26 11:39] VITALS: BMI 25.6
--- OUTSIDE RECORDS SUMMARY | 2024-09-26 13:21 | XMS_ITS | Encounter Summary ---
Author Organization [facility] Address [address] [place] [phone] Care Team Providers Care Scrum Product Owner Name Role Phone Kevin Maldonado MD Primary Care Provider [phone] Reason for Visit * Reason Onset Date Comments faxed order 09/26/2024 Hesham martell nurse order #[id number] Encounter Details Date Type Department Care Team (Late Contact Info) Description 09/26/2024 Telephone Adult Medicine [address] [phone] Ny Bravo [place] faxed order (Hesham Doyle nurse order #[id number]) Social History Tobacco Use Types Packs/Day Years [...] as of this encounter Progress Notes * Ny Bravo MA - 09/26/2024 10:28 AM EDT Received orders from Hesham Doyle nurse order #[id number]. Please sign and fax to [phone] documented in this encounter Plan of Treatment Upcoming Encounters Date Type Department Care Team ([facility] Contact Info) Description 10/06/2024 10:30 AM EDT Office Visit Adult Medicine [address] [phone] Kevin Maldonado MD [address] [place] [address] 02/10/2025 8:00 AM EDT Office Visit Adult Medicine [address] [phone] Kevin Maldonado MD [address] [place] [address] documented as of this encounter Visit Diagnoses Not on filedocumented in this encounter Care Teams Scrum Product Owner Relationship Specialty Start Date End Date Kevin Maldonado MD [address] [place] [address] PCP - General Internal Medicine 11/17/20 documented as of this encounter
--- OUTSIDE RECORDS SUMMARY | 2024-09-26 13:21 | XMS_ITS | Clinical Summary ---
Author Organization [facility] Address [address] [place] [address] Phone Care Team Providers Care Travel Guide Name Role Phone Kevin Maldonado MD Primary Care Provider [phone] Allergies Active Allergy Reactions Criticality Noted Date Comments Amlodipine Diarrhea High 04/22/2017 Diarrhea, leg cramps Medications lisinopriL (PRINIVIL,ZESTRIL) 5 mg tablet Take 1 Tablet by mouth daily for 180 days. 4 Active magnesium glycinate 100 mg tablet Take [...] Encounters Date Type Department Care Team Description 09/26/2024 Telephone Adult Medicine [address] [phone] Ny Bravo [place] faxed order ([facility] order #[id number]) 09/11/2024 Telephone Adult Medicine [address] [phone] Kevin Maldonado MD Reschedule; Cough 09/04/2024 Telephone Adult Medicine [address] [phone] Ny Bravo [place] faxed order ([facility] order #[id number]) 08/29/2024 Telephone Adult Medicine [address] [phone] Hannah Beck RN VNA 08/29/2024 Nurse Triage Adult [address] [phone] Kevin Maldonado MD VNA 08/27/2024 Telephone Adult [address] [phone] Kevin Maldonado MD triage (Bhupinder was working on this call ) 08/27/2024 Telephone Adult [address] [phone] Kevin Maldonado MD vna 08/26/2024 Telephone Adult [address] [phone] Margaret Ugarte MA dry cough 08/21/2024 Telephone Adult [address] [phone] Olvin Jung LPN vna 08/10/[address] [phone] Ny Bravo [place] Referral ([facility]) 08/01/2024 Lab Requisition [facility] - Main Lab [address] [place] [phone] Valerie Singletary PA Type 2 diabetes mellitus without complications ([facility]/HCC); Chronic obstructive pulmonary disease, unspecified (CMS/HCC); Elevated [...] Care Team (Late st Contact Info) Description 10/06/2024 10:30 AM EDT Office Visit Adult Medicine [address] [phone] Kevin Mladonado MD [address] [place] [address] 02/10/2025 8:00 AM EDT Office Visit Adult Medicine [facility] [address] [place] [phone] Kevin Maldonado MD [address] [place] [address] Health Maintenance Due Date Last Done Comments Diabetes: Annual Foot Exam 01/04/1950 Diabetes: Annual Retina Eye Exam 01/04/1950 RSV Immunization Adult Patients (1 - 1-dose 75+ series) 01/04/2015 Depression [...] AM EST) WBC 7.0 4.8 - 10.8 K/[facility] LAB HEMETOLOGY METHOD 08/01/2024 9:33 AM [facility] RBC 3.70(L) 3.80 - 4.80 M/mcL LAB HEMETOLOGY METHOD 08/01/2024 9:33 AM [facility] Hemoglobin 11.4(L) 11.5 - 16.0 g/dL LAB HEMETOLOGY METHOD 08/01/2024 9:33 AM [facility] Hematocrit 35.7 35.0 - 47.0 % LAB HEMETOLOGY METHOD 08/01/2024 9:33 AM [facility] MCV 97.0 79.0 - 98.0 FL LAB HEMETOLOGY METHOD 08/01/2024 9:33 AM [facility] MCH 31.0 27.0 - 32.0 pcg LAB HEMETOLOGY METHOD 08/01/2024 9:33 AM [facility] MCHC 31.9(L) 32.0 - 37.0 g/dL LAB HEMETOLOGY METHOD 08/01/2024 9:33 AM [facility] RDW 12.4 11.0 - 15.0 % LAB HEMETOLOGY METHOD 08/01/2024 9:33 AM [facility] Platelets 200 130 - 400 K/mcL LAB HEMETOLOGY METHOD 08/01/2024 9:33 AM [facility] MPV 10.9 7.0 - 11.0 FL LAB HEMETOLOGY METHOD 08/01/2024 9:33 AM [facility] NRBC 0.0 <1.0 % LAB HEMETOLOGY METHOD 08/01/2024 9:33 AM [facility] NRBC Absolute 0.00 <0.10 K/mcL LAB HEMETOLOGY METHOD 08/01/2024 9:33 AM [facility] Blood Venous blood specimen / Unknown Venipuncture / Unknown 08/01/2024 5:13 AM EST 08/01/2024 8:44 AM EST Valerie CORDON LAB BLOOD ORDERABLES Final Re sult [facility] [address] [place] [address], [place] [phone] * Hemoglobin A1c (08/01/2024 5:13 AM EST) Pathologist [facility] Hemoglobin A1C 4.9 <6.5 % LAB CHEMISTRY METHOD 08/01/2024 12:36 PM EST [facility] Mean Bld Glu Estim. 94 mg/dL LAB CHEMISTRY METHOD 08/01/2024 12:36 PM [facility] Blood Venous blood specimen / Unknown Venipuncture / Unknown 08/01/2024 5:13 AM EST 08/01/2024 8:44 AM EST Valerie CORDON LAB BLOOD ORDERABLES Final Re sult [facility] [address] [place] [address], [place] [phone] * (ABNORMAL) Comprehensive metabolic panel (08/01/2024 5:13 AM EST) [facility] Sodium 137 133 - 145 mmol/L LAB CHEMISTRY METHOD 08/01/2024 9:59 AM EST [facility] Potassium 4.5 3.5 - 5.5 mmol/L LAB CHEMISTRY METHOD 08/01/2024 9:59 AM EST [facility] Chloride 105 96 - 110 mmol/L LAB CHEMISTRY METHOD 08/01/2024 9:59 AM EST [facility] CO2 25 21 - 32 mmol/L LAB CHEMISTRY METHOD 08/01/2024 9:59 AM EST [facility] Anion Gap 7 3 - 11 LAB CHEMISTRY METHOD 08/01/2024 9:59 AM [facility] Glucose 87 70 - 100 mg/dL LAB CHEMISTRY METHOD 08/01/2024 9:59 AM [facility] BUN 36(H) 5 - 25 mg/dL LAB CHEMISTRY METHOD 08/01/2024 9:59 AM [facility] Creatinine 1.46(H) 0.50 - 1.10 mg/dL LAB CHEMISTRY METHOD 08/01/2024 9:59 AM [facility] eGFR 35(L) >=60 mL/min/1. 73m2 LAB CHEMISTRY METHOD 08/01/2024 9:59 AM [facility] Comment:Calculation based on the??Chronic Kidney Disease Epidemiology Collaboration (CKD-EPI) equation refit??without adjustment for race. BUN/Creatinine Ratio 24.7 LAB CHEMISTRY METHOD 08/01/2024 9:59 AM [facility] Calcium 8.9 8.5 - 10.5 mg/dL LAB CHEMISTRY METHOD 08/01/2024 9:59 AM [facility] AST (SGOT) 13 10 - 42 unit/L LAB CHEMISTRY METHOD 08/01/2024 9:59 AM [facility] ALT (SGPT) 17 10 - 60 unit/L LAB CHEMISTRY METHOD 08/01/2024 9:59 AM [facility] Alkaline Phosphatase 61 42 - 121 unit/L LAB CHEMISTRY METHOD 08/01/2024 9:59 AM [facility] Total Protein 5.8(L) 6.0 - 8.0 g/dL LAB CHEMISTRY METHOD 08/01/2024 9:59 AM [facility] Albumin 3.3 3.2 - 5.0 g/dL LAB CHEMISTRY METHOD 08/01/2024 9:59 AM [facility] Total Bilirubin 0.7 0.0 - 1.4 mg/dL LAB CHEMISTRY METHOD 08/01/2024 9:59 AM [facility] Blood Venous blood specimen / Unknown Venipuncture / Unknown 08/01/2024 5:13 AM EST 08/01/2024 8:44 AM EST Valerie CORDON LAB BLOOD ORDERABLES Final Re s[facility] [address] [place] [address], * (ABNORMAL) Lipid panel (02/07/2024) LDL/HDL Ratio [...] to have osteoporosis by WHO criteria. [facility] Department of Internal Medicine recommends using National [...] alternative screening schedule based on kylee Bowers., [facility] July 13, 2011 for patients with osteopenia [...] to have osteoporosis by WHO criteria. [facility] Department of Internal Medicine recommendsusing National Osteoporosis [...] alternative screening schedule based on kylee Bowers., [facility] 2011 for patients with osteopenia (based on hip BMD T-score) is as follows: * advanced osteopenia (T scores -2.00 to -2.49), BMD testing every year * moderate osteopenia (T scores -1.50 to -1.99), BMD testing every 5years mild osteopenia or normal BMD (T scores -1.50 and higher), BMD testingevery 15 years Ariana CORDON [facility] [place]ED[place] Final Result from Last 3 Months or Most Recently Relevant to Health Maintenance Insurance [employer] Care Teams Travel Guide Relationship Specialty Start Date End Date Kevin Maldonado MD [address] [place] [address] PCP - General Internal Medicine 11/17/20
--- OUTSIDE RECORDS SUMMARY | 2024-09-26 13:21 | XMS_ITS | Encounter Summary ---
Author Organization [facility] Address [id number] [place] [phone] Care Team Providers Care Manager Behavioral Name Role Phone Kevin Maldonado MD Primary Care Provider [phone] Encounter Details Date Type Department Care Team (Late st Contact Info) Description 08/01/2024 Lab Requisition [facility] - Main Lab [address] [facility] [place] [address] Valerie Singletary PA [address] [phone] Type 2 diabetes mellitus without [...] 10:30 AM EDT Office Visit Adult Medicine [address] [phone] Kevin Maldonado MD [address] [place] [address] 02/10/2025 8:00 AM EDT Office Visit Adult Medicine [address] [phone] Kevin Maldonado MD [address] [place] [address] documented as of this encounter Procedures Procedure [...] LAB CHEMISTRY METHOD 08/01/2024 12:36 PM EST [facility] Mean Bld Glu Estim. 94 mg/dL LAB CHEMISTRY METHOD 08/01/2024 12:36 PM EST [facility] Blood Venous blood specimen / Unknown Venipuncture / Unknown 08/01/2024 5:13 AM EST 08/01/2024 8:44 AM EST us Valerie CORDON LAB BLOOD ORDERABLES Final Re sult [facility] [address] [place] [address], * (ABNORMAL) Comprehensive metabolic panel (08/01/2024 5:13 AM EST) Sodium 137 133 - 145 mmol/L LAB CHEMISTRY METHOD 08/01/2024 9:[address] [facility] Potassium 4.5 3.5 - 5.5 mmol/L LAB CHEMISTRY METHOD 08/01/2024 9:[address] [facility] Chloride 105 96 - 110 mmol/L LAB CHEMISTRY METHOD 08/01/2024 9:[address] [facility] CO2 25 21 - 32 mmol/L LAB CHEMISTRY METHOD 08/01/2024 9:[address] [facility] Anion Gap 7 3 - 11 LAB CHEMISTRY METHOD 08/01/2024 9:[address] [facility] Glucose 87 70 - 100 mg/dL LAB CHEMISTRY METHOD 08/01/2024 9:[address] [facility] BUN 36(H) 5 - 25 mg/dL LAB CHEMISTRY METHOD 08/01/2024 9:[address] [facility] Creatinine 1.46(H) 0.50 - 1.10 mg/dL LAB CHEMISTRY METHOD 08/01/2024 9:[address] [facility] eGFR 35(L) >=60 mL/min/1. 73m2 LAB CHEMISTRY METHOD 08/01/2024 9:[address] [facility] Comment:Calculation based on the??Chronic Kidney Disease Epidemiology Collaboration (CKD-EPI) equation refit??without adjustment for race. BUN/Creatinine Ratio 24.7 LAB CHEMISTRY METHOD 08/01/2024 9:[address] [facility] Calcium 8.9 8.5 - 10.5 mg/dL LAB CHEMISTRY METHOD 08/01/2024 9:[address] [facility] AST (SGOT) 13 10 - 42 unit/L LAB CHEMISTRY METHOD 08/01/2024 9:[address] [facility] ALT (SGPT) 17 10 - 60 unit/L LAB CHEMISTRY METHOD 08/01/2024 9:[address] [facility] Alkaline Phosphatase 61 42 - 121 unit/L LAB CHEMISTRY METHOD 08/01/2024 9:[address] [facility] Total Protein 5.8(L) 6.0 - 8.0 g/dL LAB CHEMISTRY METHOD 08/01/2024 9:[address] [facility] Albumin 3.3 3.2 - 5.0 g/dL LAB CHEMISTRY METHOD 08/01/2024 9:[address] [facility] Total Bilirubin 0.7 0.0 - 1.4 mg/dL LAB CHEMISTRY METHOD 08/01/2024 9:[address] [facility] Blood Venous blood specimen / Unknown Venipuncture / Unknown 08/01/2024 5:13 AM EST 08/01/2024 8:44 AM EST us Valerie CORDON LAB BLOOD ORDERABLES Final Re sult [facility] [address] [place] [address], * (ABNORMAL) Complete blood count (08/01/2024 5:13 AM EST) WBC 7.0 4.8 - 10.8 K/mcL LAB HEMETOLOGY METHOD 08/01/2024 9:[address] [facility] RBC 3.70(L) 3.80 - 4.80 M/mcL LAB HEMETOLOGY METHOD 08/01/2024 9:[address] [facility] Hemoglobin 11.4(L) 11.5 - 16.0 g/dL LAB HEMETOLOGY METHOD 08/01/2024 9:[address] [facility] Hematocrit 35.7 35.0 - 47.0 % LAB HEMETOLOGY METHOD 08/01/2024 9:[address] [facility] MCV 97.0 79.0 - 98.0 FL LAB HEMETOLOGY METHOD 08/01/2024 9:[address] [facility] MCH 31.0 27.0 - 32.0 pcg LAB HEMETOLOGY METHOD 08/01/2024 9:33 AM EST [facility] MCHC 31.9(L) 32.0 - 37.0 g/dL LAB HEMETOLOGY METHOD 08/01/2024 9:[address] [facility] RDW 12.4 11.0 - 15.0 % LAB HEMETOLOGY METHOD 08/01/2024 9:[address] [facility] Platelets 200 130 - 400 K/mcL LAB HEMETOLOGY METHOD 08/01/2024 9:[address] [facility] MPV 10.9 7.0 - 11.0 FL LAB HEMETOLOGY METHOD 08/01/2024 9:[address] [facility] NRBC 0.0 <1.0 % LAB HEMETOLOGY METHOD 08/01/2024 9:[address] [facility] NRBC Absolute 0.00 <0.10 K/mcL LAB HEMETOLOGY METHOD 08/01/2024 9:[address] [facility] Blood Venous blood specimen / Unknown Venipuncture / Unknown 08/01/2024 5:13 AM EST 08/01/2024 8:44 AM EST us Valerie CORDON LAB BLOOD ORDERABLES Final Re sult [facility] [address] [place] [address], documented in this encounter Visit Diagnoses Diagnosis Type 2 diabetes mellitus without complications Chronic obstructive pulmonary disease, unspecified Elevated white blood cell count, unspecified documented in this encounter Care Teams Manager Behavioral Relationship Specialty Start Date End Date Kevin Maldonado MD [address] [place] [phone] PCP - General Internal Medicine 11/17/20 documented as of this encounter
--- OUTSIDE RECORDS SUMMARY | 2024-09-26 13:21 | XMS_ITS | Encounter Summary ---
Author Organization [facility] Address [address] [place] [phone] Care Team Providers Care Credit Report Checker Name Role Phone Kevin Maldonado MD Primary Care Provider [phone] Reason for Visit * Reason Onset Date Comments VNA 08/29/2024 Encounter Details Date Type Department Care Team (Late Contact Info) Description 08/29/2024 Telephone Adult Medicine [address] [phone] Hannah Beck, RIKI VNA Social History Tobacco Use [...] Department Care Team (Late Contact Info) Description 10/06/2024 10:30 AM EDT Office Visit Adult Medicine [address] [phone] Kevin Maldonado MD [address] [place] [address] 02/10/2025 8:00 AM EDT Office Visit Adult Medicine [address] [phone] Kevin Maldonado MD [address] [place] [address] documented as of this encounter Visit Diagnoses Not on filedocumented in this encounter Care Teams Credit Report Checker Relationship Specialty Start Date End Date Kevin Maldonado MD [address] [place] [address] PCP - General Internal Medicine 11/17/20 documented as of this encounter
== END 2024-09-26 12:47 | disposition home or self-care (01) ==
LOC: HO.HOS 11:24
PROVIDERS: PCP Internal Medicine; Visit Provider Physician Assistant
DX: S32.511A Fracture of superior rim of right pubis, initial encounter for closed fracture (principal); S32.591A Other specified fracture of right pubis, initial encounter for closed fracture
CPT/HCPCS: 99213

== ENCOUNTER → 2024-09-26 11:26 | Outpatient (BNV) | payer MEDICARE, SELFPAY | PROVIDERS: Visit Provider Radiology Diagnostic Radiology | DX: M25.551 Pain in right hip (principal); S32.511D Fracture of superior rim of right pubis, subsequent encounter for fracture with routine healing; S32.591A Other specified fracture of right pubis, initial encounter for closed fracture | CPT/HCPCS: 73502 ==

== ENCOUNTER 2024-10-24 08:49 | Outpatient (REF) | payer MEDICARE, MEDICAID, SELFPAY ==
--- NOTE | ~2024-10-24 | XR_ITS ---
EXAMINATION: XR PELVIS 1-2 VIEWS HISTORY: M25.559 - Pain in unspecified hip COMPARISON: Comparison is made with the prior examination dated 09/26/2024. FINDINGS: A single AP view of the pelvis is submitted. The bones are osteopenic. Again seen are fractures of the right superior and inferior pubic rami. The fracture lines remain visible. There is mild narrowing of the hip joint spaces. XR/XR pelvis 1-2V IMPRESSION: Osteopenia. Fractures of the right superior and inferior pubic rami without change. Electronically signed by: Juan Carlos Cat MD 10/24/2024 12:56 PM EDT
--- OUTSIDE RECORDS SUMMARY | 2024-10-25 08:51 | XMS_ITS | Encounter Summary ---
Author Organization [facility] Address [address] [place] [address] Care Team Providers Care Dx Board Operator Name Role Phone Kevin Maldonado MD Primary Care Provider [phone] Encounter Details Date Type Department Care Team (Late st Contact Info) Description 08/01/2024 Lab Requisition [facility] - Main Lab [address] [facility] [place] [place] [address] Valerie Singletary PA [address] [address] Type 2 diabetes mellitus without [...] 8:00 AM EDT Office Visit Adult Medicine [address] [phone] Kevin Maldonado MD [address] [place] [address] [phone] documented as of this encounter Procedures Procedure [...] Re sult [facility] [address] [place] [address], * (ABNORMAL) Comprehensive metabolic panel (08/01/2024 5:13 AM EST) Pathologist [facility] Sodium 137 133 - 145 mmol/L LAB CHEMISTRY METHOD 08/01/2024 9:59 AM EST [facility] Potassium 4.5 3.5 - 5.5 mmol/L LAB CHEMISTRY METHOD 08/01/2024 9:59 AM EST [facility] Chloride 105 96 - 110 mmol/L LAB CHEMISTRY METHOD 08/01/2024 9:59 AM [facility] CO2 25 21 - 32 mmol/L LAB CHEMISTRY METHOD 08/01/2024 9:59 AM [facility] Anion Gap 7 3 - 11 LAB CHEMISTRY METHOD 08/01/2024 9:59 AM [facility] Glucose 87 70 - 100 mg/dL LAB CHEMISTRY METHOD 08/01/2024 9:59 AM [facility] BUN 36(H) 5 - 25 mg/dL LAB CHEMISTRY METHOD 08/01/2024 9:59 AM [facility] Creatinine 1.46(H) 0.50 - 1.10 mg/dL LAB CHEMISTRY METHOD 08/01/2024 9:59 AM [facility] eGFR 35(L) >=60 mL/min/1. 73m2 LAB CHEMISTRY METHOD 08/01/2024 9:59 AM [facility] Comment:Calculation based on the??Chronic Kidney Disease Epidemiology Collaboration (CKD-EPI) equation refit??without adjustment for race. BUN/Creatinine Ratio 24.7 LAB CHEMISTRY METHOD 08/01/2024 9:59 AM [facility] Calcium 8.9 8.5 - 10.5 mg/dL LAB CHEMISTRY METHOD 08/01/2024 9:59 AM [facility] AST (SGOT) 13 10 - 42 unit/L LAB CHEMISTRY METHOD 08/01/2024 9:59 AM [facility] ALT (SGPT) 17 10 - 60 unit/L LAB CHEMISTRY METHOD 08/01/2024 9:59 AM [facility] Alkaline Phosphatase 61 42 - 121 unit/L LAB CHEMISTRY METHOD 08/01/2024 9:59 AM [facility] Total Protein 5.8(L) 6.0 - 8.0 g/dL LAB CHEMISTRY METHOD 08/01/2024 9:59 AM [facility] Albumin 3.3 3.2 - 5.0 g/dL LAB CHEMISTRY METHOD 08/01/2024 9:59 AM [facility] Total Bilirubin 0.7 0.0 - 1.4 mg/dL LAB CHEMISTRY METHOD 08/01/2024 9:59 AM [facility] Blood Venous blood specimen / Unknown Venipuncture / Unknown 08/01/2024 5:13 AM EST 08/01/2024 8:44 AM EST us Valerie CORDON LAB BLOOD ORDERABLES Final Re sult [facility] [address] [place] [address], * (ABNORMAL) Complete blood count (08/01/2024 5:13 AM EST) WBC 7.0 4.8 - 10.8 K/mcL LAB HEMETOLOGY METHOD 08/01/2024 9:33 AM [facility] RBC 3.70(L) 3.80 - 4.80 M/mcL LAB HEMETOLOGY METHOD 08/01/2024 9:33 AM [facility] Hemoglobin 11.4(L) 11.5 - 16.0 g/dL LAB HEMETOLOGY METHOD 08/01/2024 9:33 AM [facility] Hematocrit 35.7 35.0 - 47.0 % LAB HEMETOLOGY METHOD 08/01/2024 9:33 AM [facility] MCV 97.0 79.0 - 98.0 FL LAB HEMETOLOGY METHOD 08/01/2024 9:33 AM [facility] MCH 31.0 27.0 - 32.0 pcg LAB HEMETOLOGY METHOD 08/01/2024 9:33 AM [facility] MCHC 31.9(L) 32.0 - 37.0 g/dL LAB HEMETOLOGY METHOD 08/01/2024 9:33 AM EST [facility] RDW 12.4 11.0 - 15.0 % LAB HEMETOLOGY METHOD 08/01/2024 9:33 AM EST [facility] Platelets 200 130 - 400 K/mcL LAB HEMETOLOGY METHOD 08/01/2024 9:33 AM EST [facility] MPV 10.9 7.0 - 11.0 FL LAB HEMETOLOGY METHOD 08/01/2024 9:33 AM EST [facility] NRBC 0.0 <1.0 % LAB HEMETOLOGY METHOD 08/01/2024 9:33 AM EST [facility] NRBC Absolute 0.00 <0.10 K/mcL LAB HEMETOLOGY METHOD 08/01/2024 9:33 AM EST [facility] Blood Venous blood specimen / Unknown Venipuncture / Unknown 08/01/2024 5:13 AM EST 08/01/2024 8:44 AM EST us Valerie CORDON LAB BLOOD ORDERABLES Final Re sult [facility] [address] [place] [address], documented in this encounter Visit Diagnoses Diagnosis Type 2 diabetes mellitus without complications ([facility]/HCC V24, [facility]/H[facility] V28) Chronic obstructive pulmonary disease, unspecified ([facility]/H[facility] V24, [facility]/HCC V28) Elevated white blood cell count, unspecified documented in this encounter Care Teams Dx Board Operator Relationship Specialty Start Date End Date Kevin Maldonado MD [address] [place] [phone] PCP - General Internal Medicine 11/17/20 documented as of this encounter
== END 2024-10-24 08:50 | disposition home or self-care (01) ==
LOC: HO.HOSX 08:49
PROVIDERS: Visit Provider Physician Assistant
DX: M25.559 Pain in unspecified hip (principal); S32.511A Fracture of superior rim of right pubis, initial encounter for closed fracture; S32.591A Other specified fracture of right pubis, initial encounter for closed fracture
CPT/HCPCS: 72170; 99212

== ENCOUNTER 2024-10-24 09:52 | Outpatient (AMB) | payer MEDICARE, SELFPAY ==
--- NOTE | 2024-10-24 10:07 | MHC.OFFVIS ---
Intake Visit Reasons: O/V RT hip pubic rami fx 07/29/23 Intake Note: Roxanna is a 84 year old female who presents today with a walker and her son for a evaluation of her right superior pubic ramus fx, DOI 07/29/24. Patient states no pain at thew moment. Allergies No Known Allergies Allergy (Verified 10/24/24 10:11) HPI HPI O/V RT hip pubic rami fx 07/29/23: Details: Ms. Hunter is an 84-year-old female who presents to the office today weight-bearing as tolerated and with no assistive devices for a follow-up of right superior and inferior pubic rami fractures. She was last seen on 09/26/2024 where she was recommended to continue nonweightbearing for a total of 3 months from the injury to prevent any further displacement of the fractures. Patient reports that she is feeling well with no pain. [facility] Medical History Asthma Hypertension Social History Alcohol intake: never Patient Tobacco Use Status: Never used Tobacco Current occupational status: retired Review of Systems Const All systems reviewed & are unremarkable except as noted in HPI and below Physical Exam Const General: cooperative, healthy appearing and no acute distress Resp Effort & Inspection: normal respiratory effort and able to speak in complete sentences Cardio Rate: regular rate Peripheral pulses: Peripheral pulses 2+ throughout Skin Lesions: no lesions Rashes: no rashes Extrem Other: Weight-bearing as tolerated on the right lower extremity walking into the office today. NVI. Assessment & Plan Assessment & Plan (1) Fracture of superior pubic ramus: Code(s): S32.519A - Fracture of superior rim of unspecified pubis, initial encounter for closed fracture Category: Medical (2) Inferior pubic ramus fracture: Code(s): S32.599A - Other specified fracture of unspecified pubis, initial encounter for closed fracture Category: Medical Plan Ms. Hunter is an 84-year-old female who presents to the office today weight-bearing as tolerated and with no assistive devices for a follow-up of right superior and inferior pubic rami fractures. She was last seen on 09/26/2024 where she was recommended to continue nonweightbearing for a total of 3 months from the injury to prevent any further displacement of the fractures. Patient reports that she is feeling well with no pain. While in the office today, I advised the patient congenitally resume back to her normal activities. She will use pain as her guide. If she experiences any increase in pain she should contact our office immediately and start weight-bearing. She demonstrates understanding with this. She will follow p.r.n., sooner if needed. X-rays of the pelvis which were obtained while in the office today and were reviewed by me, Felicia Hendrix PA-C, revealed routine healing right superior and inferior pubic rami fractures. Orders: Orders XR pelvis 1-2V Today M25.559 - Pain in unspecified hip Coding Level of Care Code Est Pt Level 3 (94418) Diagnoses Fracture of superior pubic ramus S32.519A Inferior pubic ramus fracture S32.599A
--- OUTSIDE RECORDS SUMMARY | 2024-10-24 10:44 | XMS_ITS | Encounter Summary ---
Author Organization [facility] Address [id number] [place] [phone] Care Team Providers Care Mold Chipper Name Role Phone Kevin Maldonado MD Primary Care Provider [phone] Encounter Details Date Type Department Care Team (Late st Contact Info) Description 08/01/2024 Lab Requisition [facility] - Main Lab [address] [facility] [place] [address] Valerie Singletary PA [address] [address] Type 2 diabetes mellitus without complications (CMS/HCC V24, CMS/HCC V28); Chronic obstructive pulmonary disease, unspecified (CMS/HCC V24, CMS/HCC V28); Elevated white blood cell count, unspecified Social [...] Care Team (Late st Contact Info) Description 02/10/2025 8:00 AM EDT Office Visit Adult Medicine [address] [address] Kevin Maldonado MD [address] [place] [address] [phone] documented as of this encounter Procedures Procedure [...] LAB CHEMISTRY METHOD 08/01/2024 12:36 PM EST [facility] Mean Bld Glu Estim. 94 mg/dL LAB CHEMISTRY METHOD 08/01/2024 12:36 PM EST [facility] Blood Venous blood specimen / Unknown Venipuncture / Unknown 08/01/2024 5:13 AM EST 08/01/2024 8:44 AM EST us Valerie CORDON LAB BLOOD ORDERABLES Final Re sult [facility] [address] [place] [address], * (ABNORMAL) Comprehensive metabolic panel (08/01/2024 5:13 AM EST) Pathologist [facility] Sodium 137 133 - 145 mmol/L LAB CHEMISTRY METHOD 08/01/2024 9:59 AM EST [facility] Potassium 4.5 3.5 - 5.5 mmol/L LAB CHEMISTRY METHOD 08/01/2024 9:59 AM EST [facility] Chloride 105 96 - 110 mmol/L LAB CHEMISTRY METHOD 08/01/2024 9:59 AM [facility] CO2 25 21 - 32 mmol/L LAB CHEMISTRY METHOD 08/01/2024 9:59 AM [facility] Anion Gap 7 3 - [...] CORDON LAB BLOOD ORDERABLES Final Re sult [facility] [address] [place] [address], * (ABNORMAL) Complete blood count (08/01/2024 5:13 [...] LAB HEMETOLOGY METHOD 08/01/2024 9:33 AM EST [facility] RDW 12.4 11.0 - 15.0 % LAB HEMETOLOGY METHOD 08/01/2024 9:33 AM EST [facility] Platelets 200 130 - 400 K/mcL LAB HEMETOLOGY METHOD 08/01/2024 9:33 AM EST [facility] MPV 10.9 7.0 - 11.0 FL LAB HEMETOLOGY METHOD 08/01/2024 9:33 AM EST [facility] NRBC 0.0 <1.0 % LAB HEMETOLOGY METHOD 08/01/2024 9:33 AM EST [facility] NRBC Absolute 0.00 <0.10 K/mcL LAB HEMETOLOGY METHOD 08/01/2024 9:33 AM EST [facility] Blood Venous blood specimen / Unknown Venipuncture / Unknown 08/01/2024 5:13 AM EST 08/01/2024 8:44 AM EST us Valerie CORDON LAB BLOOD ORDERABLES Final Re sult [facility] [address] [place] [address], documented in this encounter Visit Diagnoses Diagnosis Type 2 diabetes mellitus without complications ([facility]/HCC V24, [facility]/HCC V28) Chronic obstructive pulmonary disease, unspecified ([facility]/HCC V24, [facility]/HCC V28) Elevated white blood cell count, unspecified documented in this encounter Care Teams Mold Chipper Relationship Specialty Start Date End Date Kevin Maldonado MD [address] [place] [id number] PCP - General Internal Medicine 11/17/20 documented as of this encounter
--- OUTSIDE RECORDS SUMMARY | 2024-10-24 10:44 | XMS_ITS | Clinical Summary ---
Author Organization [facility] Address [address] [place] [address] Phone Care Team Providers Care Transmitter Engineer Name Role Phone Kevin Maldonado MD Primary Care Provider [phone] Allergies Active Allergy Reactions Criticality Noted Date Comments Amlodipine Diarrhea High 04/22/2017 Diarrhea, leg cramps Medications lisinopriL (PRINIVIL,ZESTRIL) 5 mg tablet Take 1 Tablet by mouth daily for 180 days. 03/17/20 24 Active magnesium glycinate 100 mg tablet Take by mouth. Activ e atorvastatin (LIPITOR) 20 mg tablet Take 1 tablet by mouth at bedtime. 07/19/19 22 Active Trelegy Ellipta 100-62.5-25 mcg inhalerIndications :Stage 2 moderate COPD by GOLD classification (CMS/HCC V24, CMS/HCC V28) INHALE 1 PUFF INTO LUNGS ONCE A DAY. RINSE MOUTH WITH WATER AFTER USE & SPIT DO NOT SWALLOW. 60 each 1 07/24/19 25 Active albuterol HFA (PROAIR HFA ; PROVENTIL HFA ; VENTOLIN HFA) 90 mcg/actuation inhaler Inhale 2 puffs by mouth every 4 (four) hours if needed for wheezing. 6.7 g 2 10/07/19 25 Active fluticasone propionate (FLONASE) 50 mcg/actuation nasal spray Administer 2 sprays into each nostril 1 (one) time each day. 16 g 1 10/07/19 25 Active hydroCHLOROthiazid e (MICROZIDE) 12.5 mg capsule Take 1 capsule (12.5 mg total) by mouth 1 (one) time each day. 90 each 2 10/07/19 25 Active albuterol HFA (PROAIR HFA ; PROVENTIL HFA ; VENTOLIN HFA) 90 mcg/actuation inhaler Inhale 2 Puffs into the lungs every 4 hours as needed for Cough or Wheezing. 02/21/20 025 Discontinu ed(Reorder ) fluticasone propionate (FLONASE) 50 mcg/actuation nasal spray Administer 2 sprays into affected nostril(s) 1 (one) time each day. 04/18/20 025 Discontinu ed(Reorder ) hydroCHLOROthiazid e (MICROZIDE) 12.5 mg capsule Take 1 capsule (12.5 mg total) by mouth 1 (one) time each day. 12/11/19 025 Discontinu ed(Reorder ) benzonatate (TESSALON) 100 mg capsule Take 1 [...] lung 08/27/2017 Stage 2 moderate COPD by GOL D classification ([facility] V24, [facility] V28) 08/27/2017 Essential hypertension 04/17/[address] 02/04/2017 Overview (04/18/2024): 8mm right basilar pulmonary density Aortic ectasia, thoracic ([facility] V24) 7 Osteoporosis 11/02/2013 Overview (04/18/2024): T score -3.8 lumbar spine, patient not keen on antiresorptive therapy. 05/2021 T score -3.2, hip -2.9 Asthmatic bronchitis , chronic ([facility] V24, [facility] V28) 10/31/2013 Mixed hyperlipidemia 07/16/2007 Encounters Date Type Department Care Team Description 10/06/2024 10:30 AM EDT Office Visit Adult Medicine [address] [phone] Kevin Maldonado MD Closed fracture of superior ramus of right pubis, initial encounter (CMS/HCC V24, [facility] V28) (Primary Dx); Essential hypertension 09/26/2024 Telephone Adult Medicine [address] [phone] Ny Bravo [place] faxed order ([facility] order #[id number]) 09/11/2024 Telephone Adult Medicine [address] [phone] Kevin Maldonado MD Reschedule; Cough 09/04/2024 Telephone Adult [address] [phone] Ny Bravo [place] faxed order ([facility] order #[id number]) 08/29/2024 Telephone Adult Medicine [address] [phone] Hannah Beck, RN VNA 08/29/2024 Nurse Triage Adult Medicine [address] [phone] Kevin Maldonado MD VNA 08/27/2024 Telephone Adult Medicine [address] [phone] Kevin Maldonado MD triage (Bhupinder was working on this call ) 08/27/2024 Telephone Adult Medicine [address] [phone] Kevin Maldonado MD vna 08/26/2024 Telephone Adult Medicine [address] [phone] Margaret Ugarte MA dry cough 08/21/2024 Telephone [facility] [address] [place] [address] Olvin Jung LPN vna 08/10/2024 Telephone Adult Medicine [facility] [address] [place] [address] Ny Bravo [place] Referral ([facility]) 08/01/2024 Lab Requisition [facility] - Main Lab [address] [facility] [place] [address] Valerie Singletary PA Type 2 diabetes mellitus without complications ([facility] V24, [facility] V28); Chronic obstructive pulmonary disease, unspecified ([facility] V24, [facility] V28); Elevated white blood cell count, unspecified from [...] Sign Reading Time Taken Comments Blood Pressure 152/70 10/06/2024 10:46 AM EDT C Pulse 71 10/06/2024 10:40 AM EDT Temperature 36.6 ??C (97.8 ??F) 10/06/2024 10:40 AM E DT Respiratory Rate 15 10/06/2024 10:40 AM EDT Oxygen Saturation 96% 05/28/2024 1:06 PM EST Inhaled Oxygen Concentration - - Weight 63 kg (139 lb) 10/06/2024 10:40 AM EDT Height 157.5 cm (5' 2.01 ) 10/06/2024 10:40 AM E DT Body Mass Index 25.42 10/06/2024 10:40 AM EDT Plan of Treatment Upcoming Encounters Date Type Department Care Team (Late st Contact Info) Description 02/10/2025 8:00 AM EDT Office Visit Adult Medicine [address] [address] Kevin Maldonado MD [address] [place] [phone] Health Maintenance Due Date Last Done Comments [...] age to complete this topic Meningococcal B Vaccine Aged Out No l onger eligible based on patient's age to complete [...] Complete blood count (08/01/2024 5:13 AM EST) [facility] WBC 7.0 4.8 - 10.8 K/mcL LAB HEMETOLOGY METHOD 08/01/2024 9:33 AM [facility] RBC 3.70(L) 3.80 - 4.80 M/mcL LAB HEMETOLOGY METHOD 08/01/2024 9:33 AM [facility] Hemoglobin 11.4(L) 11.5 - 16.0 g/dL LAB HEMETOLOGY METHOD 08/01/2024 9:33 AM [facility] Hematocrit 35.7 35.0 - 47.0 % LAB HEMETOLOGY METHOD 08/01/2024 9:33 AM [facility] MCV 97.0 79.0 - 98.0 FL LAB HEMETOLOGY METHOD 08/01/2024 9:33 AM [facility] MCH 31.0 27.0 - 32.0 pcg LAB HEMETOLOGY METHOD 08/01/2024 9:33 AM [facility] MCHC 31.9(L) 32.0 - 37.0 g/dL LAB HEMETOLOGY METHOD 08/01/2024 9:33 AM EST [facility] RDW 12.4 11.0 - 15.0 % LAB HEMETOLOGY METHOD 08/01/2024 9:33 AM EST [facility] Platelets 200 130 - 400 K/mcL LAB HEMETOLOGY METHOD 08/01/2024 9:33 AM EST [facility] MPV 10.9 7.0 - 11.0 FL LAB HEMETOLOGY METHOD 08/01/2024 9:33 AM EST [facility] NRBC 0.0 <1.0 % LAB HEMETOLOGY METHOD 08/01/2024 9:33 AM EST [facility] NRBC Absolute 0.00 <0.10 K/mcL LAB HEMETOLOGY METHOD 08/01/2024 9:33 AM [facility] Blood Venous blood specimen / Unknown Venipuncture / Unknown 08/01/2024 5:13 AM EST 08/01/2024 8:44 AM EST us Valerie CORDON LAB BLOOD ORDERABLES Final Re sult [facility] [address] [place] [address], * Hemoglobin A1c (08/01/2024 5:13 AM EST) Hemoglobin A1C 4.9 <6.5 % LAB CHEMISTRY METHOD 08/01/2024 12:36 PM EST [facility] Mean Bld Glu Estim. 94 mg/dL LAB CHEMISTRY METHOD 08/01/2024 12:36 PM EST [facility] Blood Venous blood specimen / Unknown Venipuncture / Unknown 08/01/2024 5:13 AM EST 08/01/2024 8:44 AM EST us Valerie CORDON LAB BLOOD ORDERABLES Final Re sult [facility] [address] [place] [address], * (ABNORMAL) Comprehensive metabolic panel (08/01/2024 5:13 AM EST) Sodium 137 133 - 145 mmol/L LAB CHEMISTRY METHOD 08/01/2024 9:59 AM [facility] Potassium 4.5 3.5 - 5.5 mmol/L LAB CHEMISTRY METHOD 08/01/2024 9:59 AM [facility] Chloride 105 96 - 110 mmol/L LAB CHEMISTRY METHOD 08/01/2024 9:59 AM [facility] CO2 25 21 - 32 mmol/L LAB CHEMISTRY METHOD 08/01/2024 9:59 AM [facility] Anion Gap 7 3 - 11 LAB CHEMISTRY METHOD 08/01/2024 9:59 AM [facility] Glucose 87 70 - 100 mg/dL LAB CHEMISTRY METHOD 08/01/2024 9:59 AM [facility] BUN 36(H) 5 - 25 mg/dL LAB CHEMISTRY METHOD 08/01/2024 9:59 AM [facility] Creatinine 1.46(H) 0.50 - 1.10 mg/dL LAB CHEMISTRY METHOD 08/01/2024 9:59 AM [facility] eGFR 35(L) >=60 mL/min/1. 73m2 LAB CHEMISTRY METHOD 08/01/2024 9:59 AM [facility] Comment:Calculation based on the??Chronic Kidney Disease Epidemiology Collaboration (CKD-EPI) equation refit??without adjustment for race. BUN/Creatinine Ratio 24.7 LAB CHEMISTRY METHOD 08/01/2024 9:59 AM [facility] Calcium 8.9 8.5 - 10.5 mg/dL LAB CHEMISTRY METHOD 08/01/2024 9:59 AM [facility] AST (SGOT) 13 10 - 42 unit/L LAB CHEMISTRY METHOD 08/01/2024 9:59 AM [facility] ALT (SGPT) 17 10 - 60 unit/L LAB CHEMISTRY METHOD 08/01/2024 9:59 AM [facility] Alkaline Phosphatase 61 42 - 121 unit/L LAB CHEMISTRY METHOD 08/01/2024 9:59 AM [facility] Total Protein 5.8(L) 6.0 - 8.0 g/dL LAB CHEMISTRY METHOD 08/01/2024 9:59 AM [facility] Albumin 3.3 3.2 - 5.0 g/dL LAB CHEMISTRY METHOD 08/01/2024 9:59 AM [facility] Total Bilirubin 0.7 0.0 - 1.4 mg/dL LAB CHEMISTRY METHOD 08/01/2024 9:59 AM [facility] Blood Venous blood specimen / Unknown Venipuncture / Unknown 08/01/2024 5:13 AM EST 08/01/2024 8:44 AM EST Valerie CORDON LAB BLOOD ORDERABLES Final Re sult [facility] [address] [place] [address], * (ABNORMAL) Lipid panel (02/07/2024) LDL/HDL Ratio [...] to have osteoporosis by WHO criteria. The [facility] Department of Internal Medicine recommends using [...] alternative screening schedule based on kylee Bowers., [facility] July 13, 2011 for patients [...] to have osteoporosis by WHO criteria. The [facility] Department of Internal Medicine recommendsusing National [...] higher), BMD testingevery 15 years Ariana CORDON IM DXA PROCEDURES Final Result from Last 3 Months or Most Recently Relevant to Health Maintenance Insurance [employer] Care Teams Transmitter Engineer Relationship Specialty Start Date End Date Kevin Maldonado MD [address] [place] [phone] PCP - General Internal Medicine 11/17/20
== END 2024-10-24 10:14 | disposition home or self-care (01) ==
LOC: HO.HOS 09:55
PROVIDERS: Visit Provider Physician Assistant
DX: S32.511A Fracture of superior rim of right pubis, initial encounter for closed fracture (principal); S32.591A Other specified fracture of right pubis, initial encounter for closed fracture
CPT/HCPCS: 99213

== ENCOUNTER → 2024-10-24 10:02 | Outpatient (BNV) | payer MEDICARE, MEDICAID, SELFPAY | PROVIDERS: Visit Provider Radiology Diagnostic Radiology | DX: S32.511A Fracture of superior rim of right pubis, initial encounter for closed fracture (principal); M85.88 Other specified disorders of bone density and structure, other site | CPT/HCPCS: 72170 ==

== ENCOUNTER 2024-10-24 14:00 | Outpatient (RCR) | payer MEDICARE, MEDICAID, SELFPAY ==
--- NOTE | 2024-10-09 14:14 | MHC.PT.EP ---
[facility] [place] [facility] [place] [facility] [place] [facility] [address] Dominique Yen [address] [phone] F: [phone] F: [phone] F: [phone] F: [phone] Physical Therapy Plan of Care Date of Evaluation: 10/09/24 Date of Surgery: Diagnosis: This is an 84 yo female presenting to skilled PT with a script for fracture of the superior and inferior pubic ramus. Assessment: This is an 84 yo female presenting to skilled PT with a script for fracture of the superior and inferior pubic ramus. Patient was transferring out of a car when she slipped on black ice and landed on her right hip on 07/29/24. She did not hit her head injury and had no other signs of injury except for R hip pain. Pain was so intense that she was unable to stand up. She was transferred to [facility] ED where she was found to have a right pubic rami fracture. Her case was discussed with ortho in the ED and no surgical intervention was deemed necessary. She was kept for observation and then transferred to a rehab. Patient then had home PT and she finished a few weeks ago (she continues to do her HEP 2x/day). She is being followed by [facility] ortho and was seen on 09/26 for her most recent visit. Per the note: I recommended that the patient continue toe-touch weight-bearing angry demonstrated how to perform this while using the walker. Patient is adamant that she is not going to continue with the weight-bearing restrictions. Additionally, she requested permission to resume driving. At this time is the patient is not fully weight-bearing I cannot clear her for driving. Again, I did advise as to the patient but it does not appear as though she is going to continue with these restrictions. I agree educated the patient on the dangers of weight-bearing to soon with this type of injury including further displacement and the hip going into the pelvis. I would like to see her in 4 weeks with repeat x-rays, sooner if needed. She returns to them on 10/24. She has very little to no pain now. She expresses that she actually has more pain in her ankle from walking on her toe and her toes are going numb. She reports that she is I with ADLs and IADLs now and prior as well. In general she likes to work at the [employer] center and go shopping but she states that she is unsure what she has been allowed to do and not to do so she has been mainly lying in bed. At assessment patient continues to be noncompliant with wbing status due to inability to offload that much weight through her UE's and balance. She came in walking on the ball of her foot WBAT. At this point she has been doing this for so long and is developing a shortened gastroc, increased ankle pain and numbness in her tows so I instructed her in heel to toe gait with offloading weight through her UE's. Ultimately she is doing the same gait as she was coming in however with improved ankle symptoms as I worry she is causing more problems than good. She had no pain with this type of gait pattern. I did stress that the reason why these weightbearing restrictions are in place are because of healing time frames, risk of re-injury and set back. Assessment reveals pain that ranges from up to a 2/10 at the worst. Patient demos minimally decreased R LE ROM, strength of R LE, decreased gait pattern and balance as well as noncompliance with weightbearing status (PT will be unable to change patient's compliance with wbing. Additionally, patient unable to formally test balance due to patient supposedly TTWB) and impaired posture with forward head and rounded shoulders. Based on functional limitations, impaired QOL and pain tolerance patient is a good candidate for skilled PT 2x/wk for 4wks. Frequency and Duration: The patient will be seen 2x/wk for 4wks Short Term Goals: Pt will demonstrate improved postural awareness and understanding of core engagement with supine and standing tasks without cues throughout session to improve overall back safety in 2 weeks. Pt will continue to reinforce precautions, sitting, standing and ADL modifications with proper body mechanics in 2 wks. Pt will understand and be compliant with weightbearing and report improved ankle pain in 2 weeks. Dusting And Brushing Machine Operator Goals: Pt will return to driving, hobbies if cleared by MD In 4wks Pt will demonstrate ability to bend and lift WNL min to no pain for household tasks in 4 wks. Pt will be I in HEP and compliant in 4wks Pt will demo at least 4+ B hip MMT in 4 wks Pt will demo normal gait pattern without AD if cleared by MD in 4wks Treatment Plan: Modalities to reduce pain, spasms and effusion. Manual therapy to restore motion and function. Therapeutic exercise to improve strength and flexibility. Neuromuscular re-education for posture and balance. Therapeutic activities to return to functional activities of daily living. Electronically signed by: Nayeli Barrett, PT Please sign and return to therapist. Thank you for your referral.
--- NOTE | 2024-11-24 08:52 | MHC.PT.DC ---
[facility] [place] Office [place] Office [place] Office [address] Dominique Yen [address] [phone] F: [phone] F: [phone] F: [phone] F: [phone] Physical Therapy Discharge Report Diagnosis: This is an 84 yo female presenting to skilled PT with a script for fracture of the superior and inferior pubic ramus. Date of Surgery: Date of Evaluation: 10/09/24 Date of Discharge: 11/24/24 Treatments to Date: 4 Cancellations to Date: 0 No Shows to Date: 0 Discharge Status: Achieved Goals Improved Function Independent with HEP Patient Elected to Stop Discharge Summary: Pt came to 4 sessions of PT with minimal to no compliance with weightbearing status but demo'd good pain tolerance, good carryover with HEP and I in her program. She cancelled her last PT scheduled session. Chart was closed after 30 days. Electronically signed by: Nayeli Barrett, PT Please sign and return to therapist. Thank you for your referral.
== END 2024-11-24 08:52 | disposition home or self-care (01) ==
LOC: HO.PTCHIC 14:00
PROVIDERS: PCP Internal Medicine; Visit Provider Physician Assistant
DX: S32.511D Fracture of superior rim of right pubis, subsequent encounter for fracture with routine healing (principal); S32.591D Other specified fracture of right pubis, subsequent encounter for fracture with routine healing
CPT/HCPCS: 97110; 97161